=== PATIENT | male | born 1970 | race Caucasian/White ===

== ENCOUNTER 2021-07-13 14:15 | Inpatient (IN) ==
[2021-07-13] MEDS ORDERED: Isovue-370 500 ML BOTTLE IVP ONE (14:30)
[2021-07-13] MEDS ORDERED: 0.9 % Sodium Chloride 1,000 ML IVC ONE ×2 (14:30→17:34)
[2021-07-13 15:07] LABS: Albumin 3.4 g/dL (3.5-5.7); Albumin/Globulin Ratio 0.9 (1.1-2.2); Bilirubin,Direct 0.2 mg/dL (0.0-0.2); Bilirubin,Indirect 0.6 mg/dL (0.0-1.0); Bilirubin,Total 0.8 mg/dL (0.3-1.0); Calcium 10.1 mg/dL (8.6-10.3); Globulin 3.6 g/dL (2.4-3.5); Magnesium 1.4 mg/dL (1.6-2.6); Phosphorous 1.9 mg/dL (2.7-4.5); Potassium 4.4 mEq/L (3.5-5.1); Troponin I 0.03 ng/mL (< 0.04)
[2021-07-13 15:39] LABS: Bacteria,Urine Few per hpf (None-Few); Bilirubin,Urine Negative (Negative); Blood,Urine Negative (Negative); Clarity,Urine Clear (Clear); Color,Urine Light-Yellow (Yellow); Glucose,Urine (UA) >=1000 mg/dL (Normal); Ketones,Urine Trace mg/dL (Negative); Leukocyte Esterase,Urine Negative (Negative); Mucus,Urine Few per lpf (None-Few); Nitrite,Urine Negative (Negative); PH,Urine 5.5 pH Units (5.0-8.0); Protein,Urine Negative (Neg-Trace); RBC,Urine 0-3 per hpf (0-3); Specific Gravity,Urine > 1.030 (1.010-1.025); Squamous Epithelial Cell,Urine Few per hpf (None-Few); Urobilinogen,Urine Normal (Normal)
[2021-07-13 15:52] LABS: Basophils # 0.1 K/mcL (0.0-0.2); Basophils % 0.7 %; Eosinophils % 0.1 %; Hematocrit 49.2 % (37.5-50.1); Hemoglobin 16.3 g/dL (12.9-16.9); Immature Granulocytes % 0.5 % (0-4); Lymphocytes # 0.9 K/mcL (0.6-4.6); Lymphocytes % 8.2 %; Mean Corpuscular HGB Conc 33.1 g/dL (31.6-35.5); Mean Corpuscular Hemoglobin 28.7 pg (28.0-33.3); Mean Corpuscular Volume 86.8 fL (83.0-100.0); Mean Platelet Volume 10.7 fL (9.4-12.4); Monocytes # 0.6 K/mcL (0.0-1.3); Monocytes % 5.4 %; Platelet Count 145 K/mcL (140-400); Red Blood Count 5.67 M/mcL (4.19-5.50); Red Cell Distribution Width 14.6 % (11.5-14.5); Segmented Neutrophils % 85.1 %; White Blood Count 10.5 K/mcL (4.3-11.1)
[2021-07-13 16:09] LABS: Influenza A PCR Negative (Negative); Influenza B PCR Negative (Negative); Resp. Syncytial Virus PCR Negative (Negative); SARS-CoV-2 by PCR (In House) Negative (Negative)
[2021-07-13] MEDS ORDERED: Piperacillin/Tazobactam 4.5 GM in Water for inj. (sterile) 20 ML IVP ONE (16:37)
[2021-07-13 16:38] LABS: Activated Partial Thrombo Time 31.7 Seconds (26.0-36.0); INR 1.3; Prothrombin Time 14.3 Seconds (9.4-12.1)
[2021-07-13] MEDS ORDERED: Cefepime HCl 2,000 MG in Water for inj. (sterile) 20 ML IVP ONE (16:50)
[2021-07-13] MEDS ORDERED: MetroNIDAZOLE 500 MG/100 ML 500 MG/100 ML BAG IVPB ONE (17:00)
[2021-07-13] MEDS ORDERED: Ondansetron 4 MG/2 ML VIAL IVP PRN (17:09)
[2021-07-13] MEDS ORDERED: Naloxone 0.4 MG/ML INJ IVP PRN (17:09)
[2021-07-13] MEDS ORDERED: D5% in Water 1,000 ML IVC PRN (17:37)
[2021-07-13] MEDS ORDERED: Dextrose Gel 15 GM/37.5 ML TUBE PO PRN ×2 (17:37)
[2021-07-13] MEDS ORDERED: *HR* Dextrose 50 % in Water (Syg) 50 ML SYRINGE IVP PRN (17:37)
[2021-07-13 18:01] LABS: Estimated Average Glucose 303 mg/dl; Hemoglobin A1C 12.2 %
[2021-07-13] MEDS: 0.9 % Sodium Chloride 1,000 ML IVC SCH (19:30)
[2021-07-13 19:38] LABS: Adenovirus Not Detected (Not Detect); Bordetella Pertussis Not Detected (Not Detect); Chlamydophila pneumoniae Not Detected (Not Detect); Coronavirus 229E Not Detected (Not Detect); Coronavirus HKU1 Not Detected (Not Detect); Coronavirus NL63 Not Detected (Not Detect); Coronavirus OC43 Not Detected (Not Detect); Human Metapneumovirus Not Detected (Not Detect); Human Rhinovirus/Enterovirus Not Detected (Not Detect); Influenza A Subtype 2009 H1 Not Detected (Not Detect); Influenza B Not Detected (Not Detect); Mycoplasma pneumoniae Not Detected (Not Detect); Parainfluenza Virus 1 Not Detected (Not Detect); Parainfluenza Virus 2 Not Detected (Not Detect); Parainfluenza Virus 3 Not Detected (Not Detect); Parainfluenza Virus 4 Not Detected (Not Detect); Respiratory Syncytial Virus Not Detected (Not Detect); SARS-CoV-2 Not Detected (Not Detect)
[2021-07-13] MEDS: Insulin LISPRO 300 UNITS/3 ML VIAL SUBQ SCH (22:00)
[2021-07-13] MEDS: BuPROPion SR (12 HR) 150 MG TABLET PO SCH (22:10)
[2021-07-13] MEDS: *HR* Enoxaparin 150 MG/ML SYRINGE SQ SCH (22:10)
[2021-07-14] MEDS ORDERED: MetroNIDAZOLE 500 MG/100 ML 500 MG/100 ML BAG IVPB SCH
[2021-07-14] MEDS: 0.9 % Sodium Chloride 1,000 ML IVC SCH (02:46)
[2021-07-14] MEDS ORDERED: Acetaminophen IV 1,000 MG/100 ML BAG IVPB ONE (02:54)
[2021-07-14 03:48] LABS: Enterococcus by PCR Not Detected (Not Detect); Staphylococcus aureus by PCR Not Detected (Not Detect); Staphylococcus by PCR Not Detected (Not Detect)
[2021-07-14 03:49] LABS: Acinetobacter baumannii by PCR Not Detected (Not Detect); Candida albicans by PCR Not Detected (Not Detect); Candida glabrata by PCR Not Detected (Not Detect); Candida krusei by PCR Not Detected (Not Detect); Candida parapsilosis by PCR Not Detected (Not Detect); Candida tropicalis by PCR Not Detected (Not Detect); Enterobacter cloacae Cmplx PCR Not Detected (Not Detect); Enterobacteriaceae by PCR Not Detected (Not Detect); Escherichia coli by PCR Not Detected (Not Detect); Klebsiella oxytoca by PCR Not Detected (Not Detect); Klebsiella pneumoniae by PCR Not Detected (Not Detect); Proteus by PCR Not Detected (Not Detect); Pseudomonas aeruginosa by PCR Not Detected (Not Detect); Serratia marcescens by PCR Not Detected (Not Detect); Streptococcus agalactiae(B)PCR DETECTED (Not Detect); Streptococcus by PCR Not Detected (Not Detect); Streptococcus pneumoniae PCR Not Detected (Not Detect); Streptococcus pyogenes (A) PCR Not Detected (Not Detect)
[2021-07-14 03:50] LABS: Campylobacter by PCR Not detected (Not detect)
[2021-07-14 03:51] LABS: Adenovirus F 40/41 PCR Not detected (Not detect); Astrovirus PCR Not detected (Not detect); C.difficile Toxin A/B Gene PCR DETECTED (Not detect); Cryptosporidium by PCR Not detected (Not detect); Cyclospora cayetanensis PCR Not detected (Not detect); E. coli O157 by PCR Not detected (Not detect); Entamoeba histolytica PCR Not detected (Not detect); Enteroaggregative E.coli(EAEC) Not detected (Not detect); Enteropathogenic E.coli(EPEC) Not detected (Not detect); Enterotoxigenic E.coli (ETEC) Not detected (Not detect); Giardia lamblia PCR Not detected (Not detect); Norovirus GI/GII PCR Not detected (Not detect); Plesiomonas shigelloides PCR Not detected (Not detect); Rotavirus A PCR Not detected (Not detect); Salmonella PCR Not detected (Not detect); Sapovirus PCR Not detected (Not detect); Shig/EnteroinvasiveE coli EIEC Not detected (Not detect); Shigalike tox-prod E coli STEC Not detected (Not detect); Vibrio PCR Not detected (Not detect); Vibrio cholerae PCR Not detected (Not detect); Yersinia enterocolitica PCR Not detected (Not detect)
[2021-07-14 05:34] LABS: Basophils # 0.1 K/mcL (0.0-0.2); Basophils % 0.6 %; Eosinophils % 0.1 %; Hematocrit 41.2 % (37.5-50.1); Hemoglobin 13.9 g/dL (12.9-16.9); Immature Granulocytes % 0.9 % (0-4); Lymphocytes # 1.6 K/mcL (0.6-4.6); Lymphocytes % 13.5 %; Mean Corpuscular HGB Conc 33.7 g/dL (31.6-35.5); Mean Platelet Volume 10.5 fL (9.4-12.4); Monocytes # 1.6 K/mcL (0.0-1.3); Monocytes % 13.4 %; Neutrophils # 8.6 K/mcL (1.6-8.9); Platelet Count 126 K/mcL (140-400); Red Blood Count 4.79 M/mcL (4.19-5.50); Red Cell Distribution Width 14.8 % (11.5-14.5); Segmented Neutrophils % 71.5 %; White Blood Count 12.1 K/mcL (4.3-11.1)
[2021-07-14] MEDS: *HR* Enoxaparin 150 MG/ML SYRINGE SQ SCH ×2 (05:40→18:10)
[2021-07-14] MEDS: Cefepime HCl 2,000 MG in 0.9 % Sodium Chloride Mini Bag 100 ML IVPB SCH ×2 (05:41→16:12)
[2021-07-14] MEDS: Vancomycin Oral Soln 125 MG/2.5 ML UDC PO SCH ×5 (05:41→20:20)
[2021-07-14 05:47] LABS: BUN/Creatinine Ratio 21 (6-26); Blood Urea Nitrogen 29 mg/dL (6-20); Calcium 9.1 mg/dL (8.6-10.3); Carbon Dioxide 19 mEq/L (23-29); Chloride 99 mEq/L (98-107); Glucose 209 mg/dL (70-105); Magnesium 1.6 mg/dL (1.6-2.6); Osmolality,Calculated 280 (280-300); Potassium 4.1 mEq/L (3.5-5.1); Sodium 129 mEq/L (136-145); eGFR For African Americans > 60 (> 60); eGFR For Non-African Americans 55 (> 60)
[2021-07-14] MEDS ORDERED: Perflutren Lipid Microsphere 1.3 ML in 0.9 % Sodium Chloride 8.7 ML IVP PRN (07:27)
[2021-07-14] MEDS: Insulin LISPRO 300 UNITS/3 ML VIAL SUBQ SCH ×4 (08:46→20:19)
[2021-07-14] MEDS: BuPROPion SR (12 HR) 150 MG TABLET PO SCH ×2 (08:47→20:19)
[2021-07-14] MEDS: Vancomycin 1,500 MG/265 ML IV.SOLN IVPB SCH ×2 (08:47→20:20)
[2021-07-15 01:04] LABS: Basophils # 0.1 K/mcL (0.0-0.2); Basophils % 0.5 %; Eosinophils # 0.1 K/mcL (0.0-0.6); Eosinophils % 1.2 %; Hematocrit 40.5 % (37.5-50.1); Hemoglobin 13.4 g/dL (12.9-16.9); Immature Granulocytes % 0.7 % (0-4); Lymphocytes # 1.8 K/mcL (0.6-4.6); Lymphocytes % 14.9 %; Mean Corpuscular HGB Conc 33.1 g/dL (31.6-35.5); Mean Corpuscular Hemoglobin 28.7 pg (28.0-33.3); Mean Corpuscular Volume 86.7 fL (83.0-100.0); Mean Platelet Volume 10.7 fL (9.4-12.4); Monocytes # 1.7 K/mcL (0.0-1.3); Monocytes % 14.2 %; Platelet Count 124 K/mcL (140-400); Red Blood Count 4.67 M/mcL (4.19-5.50); Segmented Neutrophils % 68.5 %; White Blood Count 11.7 K/mcL (4.3-11.1)
[2021-07-15 01:22] LABS: BUN/Creatinine Ratio 22 (6-26); Blood Urea Nitrogen 23 mg/dL (6-20); Calcium 9.3 mg/dL (8.6-10.3); Carbon Dioxide 21 mEq/L (23-29); Chloride 101 mEq/L (98-107); Glucose 263 mg/dL (70-105); Magnesium 1.8 mg/dL (1.6-2.6); Osmolality,Calculated 279 (280-300); Phosphorous 1.4 mg/dL (2.7-4.5); Potassium 3.9 mEq/L (3.5-5.1); Sodium 128 mEq/L (136-145); eGFR For African Americans > 60 (> 60); eGFR For Non-African Americans > 60 (> 60)
[2021-07-15] MEDS: Cefepime HCl 2,000 MG in 0.9 % Sodium Chloride Mini Bag 100 ML IVPB SCH (04:39)
[2021-07-15] MEDS: *HR* Enoxaparin 150 MG/ML SYRINGE SQ SCH ×2 (04:39→17:01)
[2021-07-15] MEDS: Insulin LISPRO 300 UNITS/3 ML VIAL SUBQ SCH ×4 (08:09→21:07)
[2021-07-15] MEDS: BuPROPion SR (12 HR) 150 MG TABLET PO SCH ×2 (09:53→21:06)
[2021-07-15] MEDS: Vancomycin Oral Soln 125 MG/2.5 ML UDC PO SCH ×4 (09:53→21:06)
[2021-07-15] MEDS: Vancomycin 1,500 MG/265 ML IV.SOLN IVPB SCH (10:06)
[2021-07-15] MEDS: cefTRIAXone 2,000 MG in 0.9 % Sodium Chloride Mini Bag 100 ML IVPB SCH (14:16)
[2021-07-15] MEDS ORDERED: Gadolinium Contrast Agent (WT Based) IV PRN (14:56)
[2021-07-15] MEDS ORDERED: Vancomycin 1,500 MG/265 ML IV.SOLN IVPB SCH (17:00)
[2021-07-15] MEDS ORDERED: GADOBUTROL 30 MMOL/30 ML VIAL IVP ONE (17:51)
[2021-07-15] MEDS: Lactobacillus 1 EACH CAP.SPRINK PO SCH (21:06)
[2021-07-16 05:47] LABS: Basophils # 0.1 K/mcL (0.0-0.2); Basophils % 0.9 %; Eosinophils # 0.4 K/mcL (0.0-0.6); Eosinophils % 3.3 %; Hematocrit 42.6 % (37.5-50.1); Hemoglobin 13.9 g/dL (12.9-16.9); Immature Granulocytes % 1.3 % (0-4); Lymphocytes # 2.4 K/mcL (0.6-4.6); Lymphocytes % 19.7 %; Mean Corpuscular HGB Conc 32.6 g/dL (31.6-35.5); Mean Corpuscular Hemoglobin 28.1 pg (28.0-33.3); Mean Corpuscular Volume 86.1 fL (83.0-100.0); Mean Platelet Volume 11.2 fL (9.4-12.4); Monocytes # 1.1 K/mcL (0.0-1.3); Monocytes % 9.3 %; Neutrophils # 7.9 K/mcL (1.6-8.9); Platelet Count 163 K/mcL (140-400); Red Blood Count 4.95 M/mcL (4.19-5.50); Red Cell Distribution Width 14.9 % (11.5-14.5); Segmented Neutrophils % 65.5 %
[2021-07-16 06:02] LABS: BUN/Creatinine Ratio 19 (6-26); Blood Urea Nitrogen 19 mg/dL (6-20); Calcium 9.7 mg/dL (8.6-10.3); Carbon Dioxide 21 mEq/L (23-29); Chloride 100 mEq/L (98-107); Glucose 301 mg/dL (70-105); Magnesium 1.7 mg/dL (1.6-2.6); Osmolality,Calculated 278 (280-300); Phosphorous 1.8 mg/dL (2.7-4.5); Potassium 4.4 mEq/L (3.5-5.1); Sodium 127 mEq/L (136-145); eGFR For African Americans > 60 (> 60); eGFR For Non-African Americans > 60 (> 60)
[2021-07-16 06:29] LABS: Platelet Estimate Normal (Normal)
[2021-07-16] MEDS: Insulin LISPRO 300 UNITS/3 ML VIAL SUBQ SCH ×4 (07:29→21:32)
[2021-07-16] MEDS: Lactobacillus 1 EACH CAP.SPRINK PO SCH ×2 (07:33→20:40)
[2021-07-16] MEDS: BuPROPion SR (12 HR) 150 MG TABLET PO SCH ×2 (07:33→20:40)
[2021-07-16] MEDS: Vancomycin Oral Soln 125 MG/2.5 ML UDC PO SCH ×4 (07:33→21:31)
[2021-07-16] MEDS ORDERED: *HR* Rivaroxaban 10 MG TABLET PO SCH (09:00)
[2021-07-16] MEDS ORDERED: *HR* FentaNYL (PF) 100 MCG/2 ML VIAL IVP PRN (12:32)
[2021-07-16] MEDS ORDERED: Lidocaine 1% 20 ML MDV ONE (14:22)
[2021-07-16] MEDS ORDERED: *HR* Midazolam HCl 2 MG/2 ML VIAL ONE (14:26)
[2021-07-16] MEDS ORDERED: Lidocaine -MPF 2% 5 ML VIAL ONE (14:26)
[2021-07-16] MEDS ORDERED: *HR* FentaNYL (PF) 100 MCG/2 ML VIAL ONE (14:50)
[2021-07-16] MEDS: cefTRIAXone 2,000 MG in 0.9 % Sodium Chloride Mini Bag 100 ML IVPB SCH (16:08)
[2021-07-17 06:15] LABS: Eosinophils # 0.5 K/mcL (0.0-0.6); Hematocrit 41.4 % (37.5-50.1); Hemoglobin 13.7 g/dL (12.9-16.9); Mean Corpuscular HGB Conc 33.1 g/dL (31.6-35.5); Mean Corpuscular Hemoglobin 28.6 pg (28.0-33.3); Mean Corpuscular Volume 86.4 fL (83.0-100.0); Mean Platelet Volume 10.2 fL (9.4-12.4); Platelet Count 217 K/mcL (140-400); Red Blood Count 4.79 M/mcL (4.19-5.50); Red Cell Distribution Width 14.7 % (11.5-14.5); White Blood Count 13.5 K/mcL (4.3-11.1)
[2021-07-17 06:29] LABS: BUN/Creatinine Ratio 19 (6-26); Blood Urea Nitrogen 19 mg/dL (6-20); Calcium 9.8 mg/dL (8.6-10.3); Carbon Dioxide 22 mEq/L (23-29); Chloride 100 mEq/L (98-107); Glucose 256 mg/dL (70-105); Magnesium 1.6 mg/dL (1.6-2.6); Osmolality,Calculated 279 (280-300); Phosphorous 2.4 mg/dL (2.7-4.5); Potassium 4.6 mEq/L (3.5-5.1); Sodium 129 mEq/L (136-145); eGFR For African Americans > 60 (> 60); eGFR For Non-African Americans > 60 (> 60)
[2021-07-17 07:51] LABS: Monocytes # 0.5 K/mcL (0.0-1.3); Neutrophils # 8.9 K/mcL (1.6-8.9); Platelet Estimate Normal (Normal); Reactive Lymphocytes Present (Not Present)
[2021-07-17] MEDS: BuPROPion SR (12 HR) 150 MG TABLET PO SCH ×2 (08:14→20:13)
[2021-07-17] MEDS: Lactobacillus 1 EACH CAP.SPRINK PO SCH ×2 (08:14→20:13)
[2021-07-17] MEDS: Insulin LISPRO 300 UNITS/3 ML VIAL SUBQ SCH ×4 (08:15→20:13)
[2021-07-17] MEDS: Vancomycin Oral Soln 125 MG/2.5 ML UDC PO SCH ×4 (08:43→20:13)
[2021-07-17] MEDS: Insulin DETEMIR 100 UNIT/ML X5UNITS SUBQ SCH ×2 (12:41→20:13)
[2021-07-17] MEDS: cefTRIAXone 2,000 MG in 0.9 % Sodium Chloride Mini Bag 100 ML IVPB SCH (16:49)
[2021-07-17] MEDS: *HR* Rivaroxaban 10 MG TABLET PO SCH (16:50)
[2021-07-18 02:06] LABS: Hematocrit 39.9 % (37.5-50.1); Hemoglobin 13.5 g/dL (12.9-16.9); Mean Corpuscular HGB Conc 33.8 g/dL (31.6-35.5); Mean Corpuscular Hemoglobin 28.9 pg (28.0-33.3); Mean Corpuscular Volume 85.4 fL (83.0-100.0); Mean Platelet Volume 9.9 fL (9.4-12.4); Platelet Count 239 K/mcL (140-400); Red Blood Count 4.67 M/mcL (4.19-5.50); Red Cell Distribution Width 14.9 % (11.5-14.5); White Blood Count 16.1 K/mcL (4.3-11.1)
[2021-07-18 02:25] LABS: BUN/Creatinine Ratio 20 (6-26); Blood Urea Nitrogen 19 mg/dL (6-20); Calcium 10.2 mg/dL (8.6-10.3); Carbon Dioxide 22 mEq/L (23-29); Chloride 100 mEq/L (98-107); Glucose 263 mg/dL (70-105); Magnesium 1.6 mg/dL (1.6-2.6); Osmolality,Calculated 279 (280-300); Phosphorous 2.4 mg/dL (2.7-4.5); Potassium 4.3 mEq/L (3.5-5.1); Sodium 129 mEq/L (136-145); eGFR For African Americans > 60 (> 60); eGFR For Non-African Americans > 60 (> 60)
[2021-07-18 02:41] LABS: Anisocytosis 1+ (Not Present); Eosinophils # 0.3 K/mcL (0.0-0.6); Lymphocytes # 3.2 K/mcL (0.6-4.6); Monocytes # 1.3 K/mcL (0.0-1.3); Neutrophils # 10.6 K/mcL (1.6-8.9); Platelet Estimate Normal (Normal); Toxic Granulation Present (Not Present)
[2021-07-18] MEDS: Lactobacillus 1 EACH CAP.SPRINK PO SCH ×2 (09:32→20:37)
[2021-07-18] MEDS: Insulin DETEMIR 100 UNIT/ML X5UNITS SUBQ SCH ×2 (09:32→20:38)
[2021-07-18] MEDS: Vancomycin Oral Soln 125 MG/2.5 ML UDC PO SCH ×4 (09:32→20:37)
[2021-07-18] MEDS: BuPROPion SR (12 HR) 150 MG TABLET PO SCH ×2 (09:32→20:37)
[2021-07-18] MEDS: Aspirin Enteric Coated 81 MG Tablet PO SCH (09:32)
[2021-07-18] MEDS: Insulin LISPRO 300 UNITS/3 ML VIAL SUBQ SCH ×4 (09:33→20:38)
[2021-07-18] MEDS: cefTRIAXone 2,000 MG in 0.9 % Sodium Chloride Mini Bag 100 ML IVPB SCH (18:00)
[2021-07-18] MEDS: *HR* Rivaroxaban 10 MG TABLET PO SCH (18:05)
[2021-07-19 03:02] LABS: Basophils # 0.2 K/mcL (0.0-0.2); Basophils % 1.2 %; Eosinophils # 0.5 K/mcL (0.0-0.6); Eosinophils % 3.3 %; Hematocrit 40.5 % (37.5-50.1); Hemoglobin 13.5 g/dL (12.9-16.9); Lymphocytes # 2.8 K/mcL (0.6-4.6); Lymphocytes % 17.6 %; Mean Corpuscular HGB Conc 33.3 g/dL (31.6-35.5); Mean Corpuscular Hemoglobin 28.8 pg (28.0-33.3); Mean Corpuscular Volume 86.4 fL (83.0-100.0); Mean Platelet Volume 9.2 fL (9.4-12.4); Monocytes # 1.2 K/mcL (0.0-1.3); Monocytes % 7.4 %; Neutrophils # 10.2 K/mcL (1.6-8.9); Platelet Count 262 K/mcL (140-400); Red Blood Count 4.69 M/mcL (4.19-5.50); Segmented Neutrophils % 65.5 %; White Blood Count 15.6 K/mcL (4.3-11.1)
[2021-07-19 03:18] LABS: BUN/Creatinine Ratio 19 (6-26); Blood Urea Nitrogen 16 mg/dL (6-20); Carbon Dioxide 24 mEq/L (23-29); Chloride 100 mEq/L (98-107); Glucose 246 mg/dL (70-105); Magnesium 1.4 mg/dL (1.6-2.6); Osmolality,Calculated 277 (280-300); Potassium 4.2 mEq/L (3.5-5.1); Sodium 129 mEq/L (136-145); eGFR For African Americans > 60 (> 60); eGFR For Non-African Americans > 60 (> 60)
[2021-07-19 03:27] LABS: Platelet Estimate Normal (Normal); Reactive Lymphocytes Present (Not Present)
[2021-07-19] MEDS: Aspirin Enteric Coated 81 MG Tablet PO SCH (10:34)
[2021-07-19] MEDS: BuPROPion SR (12 HR) 150 MG TABLET PO SCH ×2 (10:34→21:09)
[2021-07-19] MEDS: Lactobacillus 1 EACH CAP.SPRINK PO SCH ×2 (10:34→21:09)
[2021-07-19] MEDS: Insulin DETEMIR 100 UNIT/ML X5UNITS SUBQ SCH ×2 (10:35→21:08)
[2021-07-19] MEDS: Insulin LISPRO 300 UNITS/3 ML VIAL SUBQ SCH ×4 (10:37→21:11)
[2021-07-19] MEDS: Vancomycin Oral Soln 125 MG/2.5 ML UDC PO SCH ×4 (10:49→21:09)
[2021-07-19] MEDS: *HR* Rivaroxaban 10 MG TABLET PO SCH (17:22)
[2021-07-19] MEDS: cefTRIAXone 2,000 MG in 0.9 % Sodium Chloride Mini Bag 100 ML IVPB SCH (17:22)
[2021-07-20 02:30] LABS: Basophils # 0.1 K/mcL (0.0-0.2); Basophils % 1.1 %; Eosinophils # 0.3 K/mcL (0.0-0.6); Eosinophils % 2.5 %; Hematocrit 41.4 % (37.5-50.1); Hemoglobin 13.7 g/dL (12.9-16.9); Lymphocytes # 2.3 K/mcL (0.6-4.6); Lymphocytes % 17.6 %; Mean Corpuscular HGB Conc 33.1 g/dL (31.6-35.5); Mean Corpuscular Hemoglobin 28.7 pg (28.0-33.3); Mean Corpuscular Volume 86.8 fL (83.0-100.0); Mean Platelet Volume 9.4 fL (9.4-12.4); Monocytes # 1.1 K/mcL (0.0-1.3); Monocytes % 8.8 %; Neutrophils # 8.4 K/mcL (1.6-8.9); Platelet Count 284 K/mcL (140-400); Red Blood Count 4.77 M/mcL (4.19-5.50); Red Cell Distribution Width 14.8 % (11.5-14.5)
[2021-07-20 02:45] LABS: BUN/Creatinine Ratio 19 (6-26); Blood Urea Nitrogen 20 mg/dL (6-20); Calcium 10.4 mg/dL (8.6-10.3); Carbon Dioxide 24 mEq/L (23-29); Chloride 97 mEq/L (98-107); Glucose 307 mg/dL (70-105); Magnesium 1.6 mg/dL (1.6-2.6); Osmolality,Calculated 280 (280-300); Phosphorous 3.1 mg/dL (2.7-4.5); Potassium 4.2 mEq/L (3.5-5.1); Sodium 128 mEq/L (136-145); eGFR For African Americans > 60 (> 60); eGFR For Non-African Americans > 60 (> 60)
[2021-07-20] MEDS: lisinopriL 20 MG TABLET PO SCH (09:35)
[2021-07-20] MEDS: Aspirin Enteric Coated 81 MG Tablet PO SCH (09:35)
[2021-07-20] MEDS: BuPROPion SR (12 HR) 150 MG TABLET PO SCH ×2 (09:35→21:14)
[2021-07-20] MEDS: Lactobacillus 1 EACH CAP.SPRINK PO SCH ×2 (09:35→21:13)
[2021-07-20] MEDS: Insulin DETEMIR 100 UNIT/ML X5UNITS SUBQ SCH ×2 (09:35→21:17)
[2021-07-20] MEDS: Vancomycin Oral Soln 125 MG/2.5 ML UDC PO SCH ×4 (09:35→21:14)
[2021-07-20] MEDS: Insulin LISPRO 300 UNITS/3 ML VIAL SUBQ SCH ×4 (09:37→21:15)
[2021-07-20] MEDS: *HR* Rivaroxaban 10 MG TABLET PO SCH (15:23)
[2021-07-20] MEDS: cefTRIAXone 2,000 MG in 0.9 % Sodium Chloride Mini Bag 100 ML IVPB SCH (15:24)
[2021-07-21 04:35] LABS: Hematocrit 43.4 % (37.5-50.1); Hemoglobin 14.2 g/dL (12.9-16.9); Mean Corpuscular HGB Conc 32.7 g/dL (31.6-35.5); Mean Corpuscular Hemoglobin 28.6 pg (28.0-33.3); Mean Corpuscular Volume 87.5 fL (83.0-100.0); Mean Platelet Volume 9.4 fL (9.4-12.4); Platelet Count 313 K/mcL (140-400); Red Blood Count 4.96 M/mcL (4.19-5.50); Red Cell Distribution Width 14.8 % (11.5-14.5); White Blood Count 12.5 K/mcL (4.3-11.1)
[2021-07-21 04:54] LABS: BUN/Creatinine Ratio 18 (6-26); Blood Urea Nitrogen 19 mg/dL (6-20); Calcium 10.7 mg/dL (8.6-10.3); Carbon Dioxide 25 mEq/L (23-29); Chloride 98 mEq/L (98-107); Glucose 358 mg/dL (70-105); Osmolality,Calculated 283 (280-300); Potassium 4.8 mEq/L (3.5-5.1); Sodium 128 mEq/L (136-145); eGFR For African Americans > 60 (> 60); eGFR For Non-African Americans > 60 (> 60)
[2021-07-21] MEDS: lisinopriL 20 MG TABLET PO SCH (07:50)
[2021-07-21] MEDS: Insulin DETEMIR 100 UNIT/ML X5UNITS SUBQ SCH ×2 (07:50→21:36)
[2021-07-21] MEDS: Aspirin Enteric Coated 81 MG Tablet PO SCH (07:50)
[2021-07-21] MEDS: Vancomycin Oral Soln 125 MG/2.5 ML UDC PO SCH ×4 (07:50→21:36)
[2021-07-21] MEDS: Insulin LISPRO 300 UNITS/3 ML VIAL SUBQ SCH ×4 (07:50→21:37)
[2021-07-21] MEDS: BuPROPion SR (12 HR) 150 MG TABLET PO SCH ×2 (07:50→21:35)
[2021-07-21] MEDS: Lactobacillus 1 EACH CAP.SPRINK PO SCH ×2 (07:50→21:35)
[2021-07-21] MEDS: cefTRIAXone 2,000 MG in 0.9 % Sodium Chloride Mini Bag 100 ML IVPB SCH (16:20)
[2021-07-21] MEDS: *HR* Rivaroxaban 10 MG TABLET PO SCH (16:21)
[2021-07-22 01:17] LABS: Hematocrit 41.5 % (37.5-50.1); Hemoglobin 13.6 g/dL (12.9-16.9); Mean Corpuscular HGB Conc 32.8 g/dL (31.6-35.5); Mean Corpuscular Hemoglobin 28.3 pg (28.0-33.3); Mean Corpuscular Volume 86.3 fL (83.0-100.0); Mean Platelet Volume 9.1 fL (9.4-12.4); Platelet Count 286 K/mcL (140-400); Red Blood Count 4.81 M/mcL (4.19-5.50); Red Cell Distribution Width 14.7 % (11.5-14.5)
[2021-07-22 01:34] LABS: BUN/Creatinine Ratio 21 (6-26); Blood Urea Nitrogen 22 mg/dL (6-20); Calcium 10.3 mg/dL (8.6-10.3); Carbon Dioxide 24 mEq/L (23-29); Chloride 99 mEq/L (98-107); Glucose 271 mg/dL (70-105); Osmolality,Calculated 281 (280-300); Sodium 129 mEq/L (136-145); eGFR For African Americans > 60 (> 60); eGFR For Non-African Americans > 60 (> 60)
[2021-07-22 04:06] VITALS: O2SAT 93
[2021-07-22 08:03] VITALS: TEMP 98.1
[2021-07-22] MEDS: Insulin LISPRO 300 UNITS/3 ML VIAL SUBQ SCH ×2 (08:09→11:43)
[2021-07-22] MEDS: BuPROPion SR (12 HR) 150 MG TABLET PO SCH (08:09)
[2021-07-22] MEDS: Lactobacillus 1 EACH CAP.SPRINK PO SCH (08:10)
[2021-07-22] MEDS: lisinopriL 20 MG TABLET PO SCH (08:10)
[2021-07-22] MEDS: Vancomycin Oral Soln 125 MG/2.5 ML UDC PO SCH ×2 (08:10→11:44)
[2021-07-22] MEDS: Aspirin Enteric Coated 81 MG Tablet PO SCH (08:10)
[2021-07-22] MEDS: Insulin DETEMIR 100 UNIT/ML X5UNITS SUBQ SCH (08:45)
[2021-07-22] MEDS ORDERED: Doxycycline 100 MG CAPSULE PO SCH (09:00)
[2021-07-22 11:06] VITALS: BP 109/66; PULSE 80
[2021-07-22] MEDS: cefTRIAXone 2,000 MG in 0.9 % Sodium Chloride Mini Bag 100 ML IVPB SCH (14:54)
== END 2021-07-22 16:19 | disposition home health service (06) | DRG 872 ==
LOC: EMEROOARM 14:15 → 2ANU 14:15 → SUATTDRO 17:20 → 2ANU 18:09 → SUATTDRO 07-14 18:29 → 2ANU 07-21 21:34
PROVIDERS: ADMIT Internal Medicine; ATTEND Internal Medicine

== ENCOUNTER 2021-08-06 15:51 | Inpatient (IN) ==
[2021-08-06] MEDS ORDERED: Vancomycin 2,000 MG/520 ML IV.SOLN IVPB ONE (19:31)
[2021-08-06 20:00] LABS: Basophils # 0.1 K/mcL (0.0-0.2); Basophils % 0.9 %; Eosinophils # 0.2 K/mcL (0.0-0.6); Hematocrit 45.4 % (37.5-50.1); Hemoglobin 14.7 g/dL (12.9-16.9); Lymphocytes # 1.7 K/mcL (0.6-4.6); Mean Corpuscular HGB Conc 32.4 g/dL (31.6-35.5); Mean Corpuscular Hemoglobin 28.2 pg (28.0-33.3); Mean Platelet Volume 9.8 fL (9.4-12.4); Monocytes % 9.6 %; Neutrophils # 7.1 K/mcL (1.6-8.9); Platelet Count 235 K/mcL (140-400); Red Blood Count 5.22 M/mcL (4.19-5.50); Red Cell Distribution Width 14.8 % (11.5-14.5); Segmented Neutrophils % 69.5 %; White Blood Count 10.3 K/mcL (4.3-11.1)
[2021-08-06] MEDS ORDERED: Cefepime HCl 2,000 MG in Water for inj. (sterile) 10 ML IVP ONE (20:00)
[2021-08-06 20:25] LABS: Alanine Aminotransferase 24 Units/L (7-52); Albumin 3.3 g/dL (3.5-5.7); Albumin/Globulin Ratio 0.7 (1.1-2.2); Alkaline Phosphatase 78 Units/L (34-104); Aspartate Amino Transferase 21 Units/L (13-39); BUN/Creatinine Ratio 17 (6-26); Bilirubin,Direct 0.1 mg/dL (0.0-0.2); Bilirubin,Indirect 0.5 mg/dL (0.0-1.0); Bilirubin,Total 0.6 mg/dL (0.3-1.0); Blood Urea Nitrogen 25 mg/dL (6-20); Calcium 10.4 mg/dL (8.6-10.3); Carbon Dioxide 24 mEq/L (23-29); Chloride 99 mEq/L (98-107); Globulin 4.6 g/dL (2.4-3.5); Glucose 105 mg/dL (70-105); Osmolality,Calculated 273 (280-300); Potassium 4.6 mEq/L (3.5-5.1); Sodium 129 mEq/L (136-145); Total Protein 7.9 g/dL (6.4-8.9); eGFR For African Americans > 60 (> 60); eGFR For Non-African Americans 50 (> 60)
[2021-08-06 20:28] LABS: C-Reactive Protein 20 mg/L (Less than 10)
[2021-08-06] MEDS ORDERED: 0.9 % Sodium Chloride 1,000 ML IVC ONE (21:40)
[2021-08-06 23:51] LABS: Bilirubin,Urine Negative (Negative); Blood,Urine Negative (Negative); Clarity,Urine Clear (Clear); Color,Urine Yellow (Yellow); Glucose,Urine (UA) >=1000 mg/dL (Normal); Ketones,Urine Negative (Negative); Leukocyte Esterase,Urine Negative (Negative); Mucus,Urine Few per lpf (None-Few); Nitrite,Urine Negative (Negative); PH,Urine 5.5 pH Units (5.0-8.0); Protein,Urine Trace mg/dL (Neg-Trace); RBC,Urine 0-3 per hpf (0-3); Specific Gravity,Urine 1.027 (1.010-1.025); Squamous Epithelial Cell,Urine Few per hpf (None-Few); Urobilinogen,Urine Normal (Normal); WBC,Urine 0-3 per hpf (0-3)
[2021-08-07] MEDS ORDERED: 0.9 % Sodium Chloride 1,000 ML IVC SCH (00:45)
[2021-08-07] MEDS ORDERED: D5% in Water 1,000 ML IVC PRN (01:08)
[2021-08-07] MEDS ORDERED: Dextrose Gel 15 GM/37.5 ML TUBE PO PRN ×2 (01:08)
[2021-08-07] MEDS ORDERED: *HR* Dextrose 50 % in Water (Syg) 50 ML SYRINGE IVP PRN (01:08)
[2021-08-07] MEDS: BuPROPion SR (12 HR) 150 MG TABLET PO SCH ×3 (01:39→22:25)
[2021-08-07] MEDS: Insulin LISPRO 300 UNITS/3 ML VIAL SUBQ SCH ×3 (07:10→17:22)
[2021-08-07] MEDS: Insulin NPH/REG 70/30 100 UNIT/ML (x5UNIT) SUBQ SCH ×2 (07:10→17:22)
[2021-08-07] MEDS: Furosemide 20 MG TABLET PO SCH (07:32)
[2021-08-07] MEDS ORDERED: (Empagliflozin [Jardiance] 25 MG PO SCH (09:00)
[2021-08-07] MEDS ORDERED: lisinopriL 20 MG TABLET PO SCH (09:00)
[2021-08-07] MEDS ORDERED: Ringers Solution, Lactated 1,000 ML IVC SCH (11:30)
[2021-08-07] MEDS ORDERED: Bupivacaine-MPF 0.25% 10 ML VIAL ONE (11:53)
[2021-08-07] MEDS ORDERED: Gentamicin 80 MG/2 ML VIAL ONE (12:13)
[2021-08-07] MEDS ORDERED: Vancomycin 1,000 MG VIAL ONE (12:13)
[2021-08-07] MEDS ORDERED: Lidocaine -MPF 2% 5 ML VIAL ONE (12:29)
[2021-08-07] MEDS ORDERED: *HR* Propofol 200 MG/20 ML VIAL IVP ONE (12:52)
[2021-08-07] MEDS: *HR* HYDROcodone/Acet 5/325 mg TABLET PO PRN ×2 (16:34→23:48)
[2021-08-07] MEDS: Cefepime HCl 2,000 MG in 0.9 % Sodium Chloride Mini Bag 100 ML IVPB SCH (16:34)
[2021-08-07 16:38] LABS: BUN/Creatinine Ratio 18 (6-26); Blood Urea Nitrogen 21 mg/dL (6-20); Carbon Dioxide 22 mEq/L (23-29); Chloride 104 mEq/L (98-107); Glucose 163 mg/dL (70-105); Osmolality,Calculated 277 (280-300); Potassium 4.3 mEq/L (3.5-5.1); Sodium 130 mEq/L (136-145); eGFR For African Americans > 60 (> 60); eGFR For Non-African Americans > 60 (> 60)
[2021-08-07] MEDS: Vancomycin 1,750 MG/517.5 ML IV.SOLN IVPB SCH (17:22)
[2021-08-08] MEDS: Insulin LISPRO 300 UNITS/3 ML VIAL SUBQ SCH ×4 (00:53→17:36)
[2021-08-08 05:52] LABS: Basophils # 0.1 K/mcL (0.0-0.2); Basophils % 0.7 %; Eosinophils # 0.3 K/mcL (0.0-0.6); Eosinophils % 3.3 %; Hematocrit 40.5 % (37.5-50.1); Hemoglobin 13.3 g/dL (12.9-16.9); Immature Granulocytes % 0.6 % (0-4); Lymphocytes # 1.6 K/mcL (0.6-4.6); Lymphocytes % 17.8 %; Mean Corpuscular HGB Conc 32.8 g/dL (31.6-35.5); Mean Corpuscular Hemoglobin 28.7 pg (28.0-33.3); Mean Corpuscular Volume 87.3 fL (83.0-100.0); Mean Platelet Volume 10.4 fL (9.4-12.4); Monocytes # 0.8 K/mcL (0.0-1.3); Monocytes % 9.2 %; Neutrophils # 6.1 K/mcL (1.6-8.9); Platelet Count 197 K/mcL (140-400); Red Blood Count 4.64 M/mcL (4.19-5.50); Red Cell Distribution Width 14.6 % (11.5-14.5); Segmented Neutrophils % 68.4 %; White Blood Count 8.9 K/mcL (4.3-11.1)
[2021-08-08] MEDS: Cefepime HCl 2,000 MG in 0.9 % Sodium Chloride Mini Bag 100 ML IVPB SCH ×2 (05:53→17:37)
[2021-08-08] MEDS: Vancomycin 1,750 MG/517.5 ML IV.SOLN IVPB SCH ×2 (05:55→18:36)
[2021-08-08 06:12] LABS: BUN/Creatinine Ratio 17 (6-26); Blood Urea Nitrogen 19 mg/dL (6-20); Calcium 9.5 mg/dL (8.6-10.3); Carbon Dioxide 21 mEq/L (23-29); Chloride 103 mEq/L (98-107); Glucose 139 mg/dL (70-105); Osmolality,Calculated 275 (280-300); Potassium 3.8 mEq/L (3.5-5.1); Sodium 130 mEq/L (136-145); eGFR For African Americans > 60 (> 60); eGFR For Non-African Americans > 60 (> 60)
[2021-08-08] MEDS: BuPROPion SR (12 HR) 150 MG TABLET PO SCH ×2 (09:15→21:20)
[2021-08-08] MEDS: Aspirin Enteric Coated 81 MG Tablet PO SCH (09:15)
[2021-08-08] MEDS: Insulin NPH/REG 70/30 100 UNIT/ML (x5UNIT) SUBQ SCH ×2 (09:15→18:36)
[2021-08-08] MEDS: Furosemide 20 MG TABLET PO SCH (09:16)
[2021-08-08] MEDS: *HR* HYDROcodone/Acet 5/325 mg TABLET PO PRN (09:17)
[2021-08-08] MEDS ORDERED: *HR* Rivaroxaban 10 MG TABLET PO SCH (18:00)
[2021-08-09] MEDS: Insulin LISPRO 300 UNITS/3 ML VIAL SUBQ SCH ×3 (00:09→14:00)
[2021-08-09] MEDS: Cefepime HCl 2,000 MG in 0.9 % Sodium Chloride Mini Bag 100 ML IVPB SCH (05:05)
[2021-08-09 06:16] LABS: BUN/Creatinine Ratio 16 (6-26); Blood Urea Nitrogen 16 mg/dL (6-20); Calcium 9.3 mg/dL (8.6-10.3); Carbon Dioxide 20 mEq/L (23-29); Chloride 106 mEq/L (98-107); Glucose 122 mg/dL (70-105); Osmolality,Calculated 274 (280-300); Potassium 3.9 mEq/L (3.5-5.1); Sodium 131 mEq/L (136-145); eGFR For African Americans > 60 (> 60); eGFR For Non-African Americans > 60 (> 60)
[2021-08-09] MEDS: Vancomycin 1,750 MG/517.5 ML IV.SOLN IVPB SCH (07:05)
[2021-08-09 07:42] VITALS: O2SAT 95
[2021-08-09] MEDS: Aspirin Enteric Coated 81 MG Tablet PO SCH (08:44)
[2021-08-09] MEDS: BuPROPion SR (12 HR) 150 MG TABLET PO SCH (08:44)
[2021-08-09] MEDS: Furosemide 20 MG TABLET PO SCH (08:44)
[2021-08-09] MEDS: Insulin NPH/REG 70/30 100 UNIT/ML (x5UNIT) SUBQ SCH (08:48)
[2021-08-09 11:05] VITALS: BP 142/66; PULSE 86; TEMP 98.1
[2021-08-11] MEDS ORDERED: Dulaglutide [Trulicity] 1.5 MG/0.5 ML SQ SCH (09:00)
== END 2021-08-09 16:29 | disposition home health service (06) | DRG 603 ==
LOC: 4WAOSI 15:51 → EMEROOARM 15:51 → 4WAOSI 23:43 → SUATTDRO 08-07 14:57
PROVIDERS: ADMIT Podiatrist Foot Surgery; ATTEND Family Medicine

== ENCOUNTER 2022-02-18 04:51 | Inpatient (IN) ==
[2022-02-18 05:14] LABS: Basophils # 0.1 K/mcL (0.0-0.2); Basophils % 0.9 %; Eosinophils # 0.3 K/mcL (0.0-0.6); Eosinophils % 2.5 %; Hematocrit 49.2 % (37.5-50.1); Hemoglobin 15.9 g/dL (12.9-16.9); Immature Granulocytes % 0.6 % (0-4); Lymphocytes # 2.3 K/mcL (0.6-4.6); Lymphocytes % 20.5 %; Mean Corpuscular HGB Conc 32.3 g/dL (31.6-35.5); Mean Corpuscular Hemoglobin 28.3 pg (28.0-33.3); Mean Corpuscular Volume 87.5 fL (83.0-100.0); Mean Platelet Volume 10.5 fL (9.4-12.4); Monocytes % 8.8 %; Neutrophils # 7.6 K/mcL (1.6-8.9); Platelet Count 204 K/mcL (140-400); Red Blood Count 5.62 M/mcL (4.19-5.50); Red Cell Distribution Width 16.1 % (11.5-14.5); Segmented Neutrophils % 66.7 %; White Blood Count 11.4 K/mcL (4.3-11.1)
[2022-02-18 05:37] LABS: Alanine Aminotransferase 13 Units/L (7-52); Albumin 3.5 g/dL (3.5-5.7); Alkaline Phosphatase 107 Units/L (34-104); Aspartate Amino Transferase 15 Units/L (13-39); BUN/Creatinine Ratio 23 (6-26); Bilirubin,Total 0.6 mg/dL (0.3-1.0); Blood Urea Nitrogen 27 mg/dL (6-20); Calcium 10.6 mg/dL (8.6-10.3); Carbon Dioxide 23 mEq/L (23-29); Chloride 107 mEq/L (98-107); Globulin 3.6 g/dL (2.4-3.5); Glucose 125 mg/dL (70-105); Lipase 69 Units/L (11-82); Osmolality,Calculated 287 (280-300); Potassium 4.4 mEq/L (3.5-5.1); Sodium 135 mEq/L (136-145); Total Protein 7.1 g/dL (6.4-8.9); eGFR For African Americans > 60 (> 60); eGFR For Non-African Americans > 60 (> 60)
[2022-02-18 05:40] LABS: Troponin I 0.04 ng/mL (< 0.04)
[2022-02-18] MEDS ORDERED: Ipratropium/Albuterol Neb 3 ML IH ONE (05:49)
[2022-02-18] MEDS ORDERED: Albuterol 2.5 MG/3 ML NEBULIZER IH ONE (05:49)
[2022-02-18] MEDS ORDERED: methylPREDNISolone 125 MG/2 ML VIAL IVP ONE (05:49)
[2022-02-18] MEDS ORDERED: Furosemide 40 MG/4 ML VIAL IVP ONE (05:50)
[2022-02-18] MEDS ORDERED: Azithromycin 250 MG TABLET PO ONE (05:50)
[2022-02-18] MEDS ORDERED: Aspirin 325 MG TABLET PO ONE (05:54)
[2022-02-18] MEDS ORDERED: Ondansetron 4 MG/2 ML VIAL IVP PRN (06:19)
[2022-02-18] MEDS ORDERED: Acetaminophen 325 MG TABLET PO PRN (06:19)
[2022-02-18] MEDS ORDERED: Naloxone 0.4 MG/ML INJ IVP PRN (06:19)
[2022-02-18] MEDS ORDERED: Perflutren Lipid Microsphere 1.3 ML in 0.9 % Sodium Chloride 8.7 ML IVP PRN (06:21)
[2022-02-18] MEDS ORDERED: Dextrose Gel 15 GM/37.5 ML TUBE PO PRN ×2 (07:56)
[2022-02-18] MEDS ORDERED: Ipratropium/Albuterol Neb 3 ML IH PRN (07:56)
[2022-02-18] MEDS ORDERED: *HR* Dextrose 50 % in Water (Syg) 50 ML SYRINGE IVP PRN (07:56)
[2022-02-18] MEDS ORDERED: D5% in Water 1,000 ML IVC PRN (07:56)
[2022-02-18 09:41] LABS: INR 1.5; Prothrombin Time 16.3 Seconds (9.4-12.1)
[2022-02-18 09:44] LABS: Activated Partial Thrombo Time 48.6 Seconds (26.0-36.0)
[2022-02-18 09:49] LABS: Chol/HDL Ratio 3.4 (0-4.9); Magnesium 1.8 mg/dL (1.6-2.6); Phosphorous 1.7 mg/dL (2.7-4.5)
[2022-02-18] MEDS: lisinopriL 20 MG TABLET PO SCH (09:52)
[2022-02-18] MEDS: Cholecalciferol (D-3) 1,000 UNIT (25MCG) TABLET PO SCH (09:53)
[2022-02-18] MEDS: BuPROPion SR (12 HR) 150 MG TABLET PO SCH ×2 (09:53→20:58)
[2022-02-18 10:04] LABS: Estimated Average Glucose 177 mg/dl; Hemoglobin A1C 7.8 %
[2022-02-18 10:28] LABS: Amphetamine Screen,Urine Negative ng/mL (Cutoff=1000); Barbiturate Screen,Urine Negative ng/mL (Cutoff=200); Benzodiazepines Screen,Urine Negative ng/mL (Cutoff=200); Cannabinoid Screen,Urine Negative ng/mL (Cutoff = 50); Cocaine Screen,Urine Negative ng/mL (Cutoff= 300); Opiate Screen,Urine Negative ng/mL (Cutoff=300); Phencyclidine Screen,Urine Negative ng/mL (Cutoff=25)
[2022-02-18] MEDS: Insulin LISPRO 300 UNITS/3 ML VIAL SUBQ SCH ×3 (10:59→20:58)
[2022-02-18] MEDS: *HR* Rivaroxaban 10 MG TABLET PO SCH (16:52)
[2022-02-18] MEDS ORDERED: *HR* Rivaroxaban 10 MG TABLET PO SCH (18:00)
[2022-02-18] MEDS: Insulin DETEMIR 100 UNIT/ML X5UNITS SUBQ SCH (20:58)
[2022-02-19 06:16] LABS: Basophils % 0.2 %; Eosinophils % 0.2 %; Hemoglobin 15.5 g/dL (12.9-16.9); Immature Granulocytes % 0.7 % (0-4); Lymphocytes # 1.9 K/mcL (0.6-4.6); Lymphocytes % 8.7 %; Mean Corpuscular HGB Conc 31.6 g/dL (31.6-35.5); Mean Corpuscular Hemoglobin 27.9 pg (28.0-33.3); Mean Corpuscular Volume 88.3 fL (83.0-100.0); Mean Platelet Volume 10.5 fL (9.4-12.4); Monocytes # 1.7 K/mcL (0.0-1.3); Monocytes % 7.8 %; Neutrophils # 17.8 K/mcL (1.6-8.9); Platelet Count 212 K/mcL (140-400); Red Blood Count 5.55 M/mcL (4.19-5.50); Red Cell Distribution Width 15.8 % (11.5-14.5); Segmented Neutrophils % 82.4 %; White Blood Count 21.6 K/mcL (4.3-11.1)
[2022-02-19 06:17] LABS: Alanine Aminotransferase 10 Units/L (7-52); Albumin 3.4 g/dL (3.5-5.7); Albumin/Globulin Ratio 1.1 (1.1-2.2); Alkaline Phosphatase 98 Units/L (34-104); Aspartate Amino Transferase 12 Units/L (13-39); BUN/Creatinine Ratio 34 (6-26); Bilirubin,Total 0.6 mg/dL (0.3-1.0); Blood Urea Nitrogen 43 mg/dL (6-20); Calcium 10.7 mg/dL (8.6-10.3); Carbon Dioxide 23 mEq/L (23-29); Chloride 104 mEq/L (98-107); Globulin 3.2 g/dL (2.4-3.5); Glucose 235 mg/dL (70-105); Osmolality,Calculated 294 (280-300); Potassium 4.6 mEq/L (3.5-5.1); Sodium 133 mEq/L (136-145); Total Protein 6.6 g/dL (6.4-8.9); eGFR For African Americans > 60 (> 60); eGFR For Non-African Americans > 60 (> 60)
[2022-02-19] MEDS: Insulin LISPRO 300 UNITS/3 ML VIAL SUBQ SCH ×4 (08:03→21:26)
[2022-02-19] MEDS: Cholecalciferol (D-3) 1,000 UNIT (25MCG) TABLET PO SCH (08:45)
[2022-02-19] MEDS: lisinopriL 20 MG TABLET PO SCH (08:45)
[2022-02-19] MEDS: BuPROPion SR (12 HR) 150 MG TABLET PO SCH ×2 (08:45→21:25)
[2022-02-19] MEDS: Aspirin Enteric Coated 81 MG Tablet PO SCH (08:45)
[2022-02-19] MEDS: Furosemide 40 MG/4 ML VIAL IVP SCH (08:46)
[2022-02-19 10:02] LABS: Bilirubin,Urine Negative (Negative); Blood,Urine Trace (Negative); Clarity,Urine Clear (Clear); Color,Urine Colorless (Yellow); Glucose,Urine (UA) >=1000 mg/dL (Normal); Ketones,Urine Negative (Negative); Leukocyte Esterase,Urine Negative (Negative); Nitrite,Urine Negative (Negative); Protein,Urine Negative (Neg-Trace); RBC,Urine 0-3 per hpf (0-3); Specific Gravity,Urine 1.023 (1.010-1.025); Squamous Epithelial Cell,Urine Few per hpf (None-Few); Urobilinogen,Urine Normal (Normal); WBC,Urine 0-3 per hpf (0-3)
[2022-02-19] MEDS ORDERED: Vancomycin 2,000 MG/520 ML IV.SOLN IVPB ONE (14:00)
[2022-02-19] MEDS: cefTRIAXone 2,000 MG in 0.9 % Sodium Chloride Mini Bag 100 ML IVPB SCH (14:33)
[2022-02-19] MEDS: *HR* Rivaroxaban 10 MG TABLET PO SCH (16:29)
[2022-02-19] MEDS: Insulin DETEMIR 100 UNIT/ML X5UNITS SUBQ SCH (21:25)
[2022-02-20] MEDS: Vancomycin 2,000 MG/520 ML IV.SOLN IVPB SCH ×2 (03:38→16:37)
[2022-02-20] MEDS ORDERED: Regadenoson 0.4 MG/5 ML SYRINGE IVP ONE (06:12)
[2022-02-20] MEDS: Furosemide 40 MG/4 ML VIAL IVP SCH ×2 (07:43→17:55)
[2022-02-20] MEDS: Cholecalciferol (D-3) 1,000 UNIT (25MCG) TABLET PO SCH (07:44)
[2022-02-20] MEDS: Aspirin Enteric Coated 81 MG Tablet PO SCH (07:44)
[2022-02-20] MEDS: BuPROPion SR (12 HR) 150 MG TABLET PO SCH ×2 (07:44→20:11)
[2022-02-20] MEDS: lisinopriL 20 MG TABLET PO SCH (07:44)
[2022-02-20] MEDS: Insulin LISPRO 300 UNITS/3 ML VIAL SUBQ SCH ×4 (07:45→20:11)
[2022-02-20] MEDS: cefTRIAXone 2,000 MG in 0.9 % Sodium Chloride Mini Bag 100 ML IVPB SCH (07:45)
[2022-02-20 08:31] LABS: Basophils # 0.1 K/mcL (0.0-0.2); Basophils % 0.9 %; Eosinophils # 0.2 K/mcL (0.0-0.6); Eosinophils % 1.8 %; Hematocrit 50.2 % (37.5-50.1); Hemoglobin 16.1 g/dL (12.9-16.9); Immature Granulocytes % 0.5 % (0-4); Lymphocytes # 2.3 K/mcL (0.6-4.6); Lymphocytes % 17.4 %; Mean Corpuscular HGB Conc 32.1 g/dL (31.6-35.5); Mean Corpuscular Volume 87.5 fL (83.0-100.0); Mean Platelet Volume 10.3 fL (9.4-12.4); Monocytes % 7.7 %; Neutrophils # 9.4 K/mcL (1.6-8.9); Platelet Count 202 K/mcL (140-400); Red Blood Count 5.74 M/mcL (4.19-5.50); Red Cell Distribution Width 16.7 % (11.5-14.5); Segmented Neutrophils % 71.7 %; White Blood Count 13.2 K/mcL (4.3-11.1)
[2022-02-20 08:52] LABS: Alanine Aminotransferase 16 Units/L (7-52); Albumin 3.6 g/dL (3.5-5.7); Albumin/Globulin Ratio 1.1 (1.1-2.2); Alkaline Phosphatase 97 Units/L (34-104); Aspartate Amino Transferase 13 Units/L (13-39); BUN/Creatinine Ratio 36 (6-26); Bilirubin,Total 0.6 mg/dL (0.3-1.0); Blood Urea Nitrogen 40 mg/dL (6-20); Calcium 10.4 mg/dL (8.6-10.3); Carbon Dioxide 23 mEq/L (23-29); Chloride 105 mEq/L (98-107); Globulin 3.4 g/dL (2.4-3.5); Glucose 192 mg/dL (70-105); Osmolality,Calculated 293 (280-300); Potassium 4.4 mEq/L (3.5-5.1); Sodium 134 mEq/L (136-145); eGFR For African Americans > 60 (> 60); eGFR For Non-African Americans > 60 (> 60)
[2022-02-20] MEDS ORDERED: Lidocaine Viscous Oral Soln 15 ML SOLUTION MM PRN (10:38)
[2022-02-20] MEDS ORDERED: 0.9 % Sodium Chloride 500 ML IVC ONE (10:39)
[2022-02-20] MEDS: *HR* Midazolam HCl 5 MG/5 ML VIAL IVP PRN ×5 (11:00→11:15)
[2022-02-20] MEDS: *HR* FentaNYL (PF) 100 MCG/2 ML VIAL IVP PRN ×5 (11:00→11:15)
[2022-02-20] MEDS ORDERED: Iopamidol - 370 500 ML MLS IVP ONE (15:35)
[2022-02-20] MEDS: *HR* Rivaroxaban 10 MG TABLET PO SCH (16:40)
[2022-02-20] MEDS ORDERED: 0.9 % Sodium Chloride 1,000 ML IVC SCH (17:15)
[2022-02-20] MEDS: Insulin DETEMIR 100 UNIT/ML X5UNITS SUBQ SCH (20:11)
[2022-02-21] MEDS: Insulin LISPRO 300 UNITS/3 ML VIAL SUBQ SCH ×4 (06:44→20:44)
[2022-02-21] MEDS: Aspirin Enteric Coated 81 MG Tablet PO SCH (06:45)
[2022-02-21] MEDS: Cholecalciferol (D-3) 1,000 UNIT (25MCG) TABLET PO SCH (06:45)
[2022-02-21] MEDS: BuPROPion SR (12 HR) 150 MG TABLET PO SCH ×2 (06:45→20:43)
[2022-02-21] MEDS: lisinopriL 20 MG TABLET PO SCH (06:45)
[2022-02-21 09:08] LABS: Basophils # 0.1 K/mcL (0.0-0.2); Eosinophils # 0.3 K/mcL (0.0-0.6); Eosinophils % 2.2 %; Hematocrit 49.3 % (37.5-50.1); Hemoglobin 16.2 g/dL (12.9-16.9); Immature Granulocytes % 0.6 % (0-4); Lymphocytes % 15.8 %; Mean Corpuscular HGB Conc 32.9 g/dL (31.6-35.5); Mean Corpuscular Hemoglobin 28.3 pg (28.0-33.3); Mean Corpuscular Volume 86.2 fL (83.0-100.0); Mean Platelet Volume 10.1 fL (9.4-12.4); Monocytes # 1.1 K/mcL (0.0-1.3); Monocytes % 8.4 %; Neutrophils # 9.1 K/mcL (1.6-8.9); Platelet Count 193 K/mcL (140-400); Red Blood Count 5.72 M/mcL (4.19-5.50); White Blood Count 12.7 K/mcL (4.3-11.1)
[2022-02-21 09:34] LABS: INR 1.2; Prothrombin Time 13.1 Seconds (9.4-12.1)
[2022-02-21 09:56] LABS: Alanine Aminotransferase 13 Units/L (7-52); Albumin 3.6 g/dL (3.5-5.7); Albumin/Globulin Ratio 1.1 (1.1-2.2); Alkaline Phosphatase 96 Units/L (34-104); Aspartate Amino Transferase 11 Units/L (13-39); BUN/Creatinine Ratio 33 (6-26); Bilirubin,Total 1.1 mg/dL (0.3-1.0); Blood Urea Nitrogen 35 mg/dL (6-20); Calcium 10.5 mg/dL (8.6-10.3); Carbon Dioxide 22 mEq/L (23-29); Chloride 103 mEq/L (98-107); Globulin 3.3 g/dL (2.4-3.5); Glucose 211 mg/dL (70-105); Osmolality,Calculated 288 (280-300); Potassium 4.3 mEq/L (3.5-5.1); Sodium 132 mEq/L (136-145); Total Protein 6.9 g/dL (6.4-8.9); eGFR For African Americans > 60 (> 60); eGFR For Non-African Americans > 60 (> 60)
[2022-02-21] MEDS: Furosemide 40 MG/4 ML VIAL IVP SCH ×2 (10:44→16:18)
[2022-02-21] MEDS ORDERED: Nitroglycerin 1,000 MCG/5 ML VIAL IV ONE (11:39)
[2022-02-21] MEDS ORDERED: Heparin 1,000 UNITS/500 mL 500 ML ONE (11:39)
[2022-02-21] MEDS ORDERED: *HR* Heparin 10,000 UNIT/10 ML VIAL ONE (11:39)
[2022-02-21] MEDS ORDERED: Iopamidol - 370 200 ML INFUS..BTL ONE (11:39)
[2022-02-21] MEDS ORDERED: 0.9 % Sodium Chloride 2,000 ML ONE (11:39)
[2022-02-21] MEDS ORDERED: *HR* FentaNYL (PF) 100 MCG/2 ML VIAL ONE (12:49)
[2022-02-21] MEDS ORDERED: *HR* Midazolam HCl 2 MG/2 ML VIAL ONE (12:49)
[2022-02-21] MEDS: Insulin DETEMIR 100 UNIT/ML X5UNITS SUBQ SCH (20:43)
[2022-02-22 01:58] LABS: Basophils # 0.1 K/mcL (0.0-0.2); Eosinophils # 0.3 K/mcL (0.0-0.6); Eosinophils % 3.1 %; Hematocrit 47.3 % (37.5-50.1); Hemoglobin 15.3 g/dL (12.9-16.9); Immature Granulocytes % 0.9 % (0-4); Lymphocytes # 2.4 K/mcL (0.6-4.6); Lymphocytes % 25.1 %; Mean Corpuscular HGB Conc 32.3 g/dL (31.6-35.5); Mean Corpuscular Hemoglobin 27.6 pg (28.0-33.3); Mean Corpuscular Volume 85.4 fL (83.0-100.0); Mean Platelet Volume 11.2 fL (9.4-12.4); Monocytes # 0.9 K/mcL (0.0-1.3); Monocytes % 9.7 %; Neutrophils # 5.8 K/mcL (1.6-8.9); Platelet Count 207 K/mcL (140-400); Red Blood Count 5.54 M/mcL (4.19-5.50); Red Cell Distribution Width 15.6 % (11.5-14.5); Segmented Neutrophils % 60.2 %; White Blood Count 9.7 K/mcL (4.3-11.1)
[2022-02-22 02:12] LABS: Alanine Aminotransferase 13 Units/L (7-52); Albumin 3.2 g/dL (3.5-5.7); Albumin/Globulin Ratio 0.9 (1.1-2.2); Alkaline Phosphatase 90 Units/L (34-104); Aspartate Amino Transferase 12 Units/L (13-39); BUN/Creatinine Ratio 31 (6-26); Bilirubin,Total 0.9 mg/dL (0.3-1.0); Blood Urea Nitrogen 37 mg/dL (6-20); Calcium 10.4 mg/dL (8.6-10.3); Carbon Dioxide 27 mEq/L (23-29); Chloride 99 mEq/L (98-107); Globulin 3.5 g/dL (2.4-3.5); Glucose 257 mg/dL (70-105); Osmolality,Calculated 293 (280-300); Sodium 133 mEq/L (136-145); Total Protein 6.7 g/dL (6.4-8.9); eGFR For African Americans > 60 (> 60); eGFR For Non-African Americans > 60 (> 60)
[2022-02-22] MEDS: Insulin LISPRO 300 UNITS/3 ML VIAL SUBQ SCH ×4 (07:31→20:02)
[2022-02-22] MEDS: Furosemide 40 MG/4 ML VIAL IVP SCH ×2 (07:31→16:45)
[2022-02-22] MEDS: Aspirin Enteric Coated 81 MG Tablet PO SCH (07:31)
[2022-02-22] MEDS: Cholecalciferol (D-3) 1,000 UNIT (25MCG) TABLET PO SCH (07:32)
[2022-02-22] MEDS: BuPROPion SR (12 HR) 150 MG TABLET PO SCH ×2 (07:32→20:03)
[2022-02-22] MEDS: lisinopriL 20 MG TABLET PO SCH (07:32)
[2022-02-22] MEDS: Insulin DETEMIR 100 UNIT/ML X5UNITS SUBQ SCH (20:02)
[2022-02-23] MEDS: Cholecalciferol (D-3) 1,000 UNIT (25MCG) TABLET PO SCH (07:57)
[2022-02-23] MEDS: Insulin LISPRO 300 UNITS/3 ML VIAL SUBQ SCH ×4 (07:57→22:10)
[2022-02-23] MEDS: Furosemide 40 MG/4 ML VIAL IVP SCH ×2 (07:57→17:07)
[2022-02-23] MEDS: lisinopriL 20 MG TABLET PO SCH (07:57)
[2022-02-23] MEDS: Aspirin Enteric Coated 81 MG Tablet PO SCH (07:57)
[2022-02-23] MEDS: BuPROPion SR (12 HR) 150 MG TABLET PO SCH ×2 (08:01→22:10)
[2022-02-23] MEDS: Insulin DETEMIR 100 UNIT/ML X5UNITS SUBQ SCH (22:10)
[2022-02-24] MEDS: BuPROPion SR (12 HR) 150 MG TABLET PO SCH ×2 (08:07→21:57)
[2022-02-24] MEDS: Aspirin Enteric Coated 81 MG Tablet PO SCH (08:07)
[2022-02-24] MEDS: Cholecalciferol (D-3) 1,000 UNIT (25MCG) TABLET PO SCH (08:07)
[2022-02-24] MEDS: Insulin LISPRO 300 UNITS/3 ML VIAL SUBQ SCH ×4 (08:07→21:57)
[2022-02-24 11:09] LABS: Basophils # 0.1 K/mcL (0.0-0.2); Basophils % 0.9 %; Eosinophils # 0.3 K/mcL (0.0-0.6); Eosinophils % 2.4 %; Hematocrit 49.1 % (37.5-50.1); Immature Granulocytes % 0.8 % (0-4); Lymphocytes # 1.8 K/mcL (0.6-4.6); Lymphocytes % 17.2 %; Mean Corpuscular HGB Conc 32.6 g/dL (31.6-35.5); Mean Corpuscular Hemoglobin 28.3 pg (28.0-33.3); Mean Corpuscular Volume 86.9 fL (83.0-100.0); Mean Platelet Volume 10.7 fL (9.4-12.4); Monocytes # 0.8 K/mcL (0.0-1.3); Monocytes % 7.4 %; Neutrophils # 7.5 K/mcL (1.6-8.9); Platelet Count 200 K/mcL (140-400); Red Blood Count 5.65 M/mcL (4.19-5.50); Red Cell Distribution Width 15.5 % (11.5-14.5); Segmented Neutrophils % 71.3 %; White Blood Count 10.5 K/mcL (4.3-11.1)
[2022-02-24 11:30] LABS: Alanine Aminotransferase 20 Units/L (7-52); Albumin 3.5 g/dL (3.5-5.7); Alkaline Phosphatase 97 Units/L (34-104); Aspartate Amino Transferase 15 Units/L (13-39); BUN/Creatinine Ratio 30 (6-26); Bilirubin,Total 0.7 mg/dL (0.3-1.0); Blood Urea Nitrogen 38 mg/dL (6-20); Calcium 10.6 mg/dL (8.6-10.3); Carbon Dioxide 29 mEq/L (23-29); Chloride 99 mEq/L (98-107); Globulin 3.4 g/dL (2.4-3.5); Glucose 366 mg/dL (70-105); Osmolality,Calculated 296 (280-300); Potassium 4.5 mEq/L (3.5-5.1); Sodium 131 mEq/L (136-145); Total Protein 6.9 g/dL (6.4-8.9); eGFR For African Americans > 60 (> 60); eGFR For Non-African Americans > 60 (> 60)
[2022-02-24] MEDS: lisinopriL 20 MG TABLET PO SCH (11:33)
[2022-02-24] MEDS: Furosemide 40 MG/4 ML VIAL IVP SCH ×2 (11:33→17:06)
[2022-02-24 20:29] LABS: Basophils # 0.1 K/mcL (0.0-0.2); Eosinophils # 0.3 K/mcL (0.0-0.6); Eosinophils % 2.6 %; Hematocrit 48.6 % (37.5-50.1); Hemoglobin 15.8 g/dL (12.9-16.9); Immature Granulocytes % 0.7 % (0-4); Lymphocytes # 2.3 K/mcL (0.6-4.6); Lymphocytes % 20.4 %; Mean Corpuscular HGB Conc 32.5 g/dL (31.6-35.5); Mean Corpuscular Hemoglobin 28.3 pg (28.0-33.3); Mean Corpuscular Volume 87.1 fL (83.0-100.0); Mean Platelet Volume 10.7 fL (9.4-12.4); Monocytes % 8.5 %; Neutrophils # 7.6 K/mcL (1.6-8.9); Platelet Count 212 K/mcL (140-400); Red Blood Count 5.58 M/mcL (4.19-5.50); Red Cell Distribution Width 15.3 % (11.5-14.5); Segmented Neutrophils % 66.8 %; White Blood Count 11.4 K/mcL (4.3-11.1)
[2022-02-24 20:42] LABS: INR 1.1; Prothrombin Time 12.8 Seconds (9.4-12.1)
[2022-02-24 20:49] LABS: Calcium 10.4 mg/dL (8.6-10.3); Chol/HDL Ratio 5.1 (0-4.9); Potassium 4.5 mEq/L (3.5-5.1)
[2022-02-24] MEDS: Insulin DETEMIR 100 UNIT/ML X5UNITS SUBQ SCH (21:57)
[2022-02-24] MEDS: Chlorhexidine Rinse 15 ML MOUTHWASH MM SCH (21:57)
[2022-02-25 01:39] LABS: Hematocrit 45.5 % (37.5-50.1); Hemoglobin 14.8 g/dL (12.9-16.9); Mean Corpuscular HGB Conc 32.5 g/dL (31.6-35.5); Mean Corpuscular Hemoglobin 27.9 pg (28.0-33.3); Mean Corpuscular Volume 85.8 fL (83.0-100.0); Mean Platelet Volume 10.6 fL (9.4-12.4); Platelet Count 191 K/mcL (140-400); Red Cell Distribution Width 15.3 % (11.5-14.5); White Blood Count 10.1 K/mcL (4.3-11.1)
[2022-02-25 01:55] LABS: Alanine Aminotransferase 20 Units/L (7-52); Albumin 3.2 g/dL (3.5-5.7); Alkaline Phosphatase 111 Units/L (34-104); Aspartate Amino Transferase 15 Units/L (13-39); BUN/Creatinine Ratio 35 (6-26); Bilirubin,Total 0.5 mg/dL (0.3-1.0); Blood Urea Nitrogen 48 mg/dL (6-20); Calcium 10.1 mg/dL (8.6-10.3); Carbon Dioxide 25 mEq/L (23-29); Chloride 98 mEq/L (98-107); Globulin 3.1 g/dL (2.4-3.5); Glucose 367 mg/dL (70-105); Osmolality,Calculated 296 (280-300); Sodium 129 mEq/L (136-145); Total Protein 6.3 g/dL (6.4-8.9); eGFR For African Americans > 60 (> 60); eGFR For Non-African Americans 54 (> 60)
[2022-02-25] MEDS ORDERED: Aspirin 81 MG TAB.CHEW PO ONE (06:00)
[2022-02-25] MEDS: lisinopriL 20 MG TABLET PO SCH (07:42)
[2022-02-25] MEDS: Insulin LISPRO 300 UNITS/3 ML VIAL SUBQ SCH ×2 (07:43→11:49)
[2022-02-25] MEDS: Furosemide 40 MG/4 ML VIAL IVP SCH ×2 (07:43→21:51)
[2022-02-25] MEDS: Chlorhexidine Rinse 15 ML MOUTHWASH MM SCH ×2 (07:43→20:58)
[2022-02-25] MEDS: Cholecalciferol (D-3) 1,000 UNIT (25MCG) TABLET PO SCH (07:44)
[2022-02-25] MEDS: BuPROPion SR (12 HR) 150 MG TABLET PO SCH ×2 (07:44→21:01)
[2022-02-25] MEDS ORDERED: CARDIOPLEGIC SOLUTION NO.1 1,000 ML ONE (07:58)
[2022-02-25] MEDS ORDERED: Vancomycin 1,000 MG VIAL ONE (10:04)
[2022-02-25] MEDS ORDERED: DOBUTamine 1,000 MG/250 ML BAG ONE (10:15)
[2022-02-25] MEDS ORDERED: NiCARdipine 2.5 MG/10 ML Syringe IVPB ONE (10:15)
[2022-02-25] MEDS ORDERED: *HR* Midazolam HCl 5 MG/5 ML VIAL IVP ONE ×2 (10:18→20:49)
[2022-02-25] MEDS ORDERED: *HR* FentaNYL (PF) 1,000 MCG/20 ML VIAL ONE (10:18)
[2022-02-25] MEDS ORDERED: *HR* Rocuronium Bromide 50 MG/5 ML VIAL ONE ×3 (10:20→20:49)
[2022-02-25] MEDS ORDERED: niCARdipine 20 MG/200 ML MLS IVC ONE (10:20)
[2022-02-25] MEDS ORDERED: Calcium Gluconate 1,000 MG/10 ML VIAL ONE (10:21)
[2022-02-25] MEDS ORDERED: *HR* Etomidate 20 MG/10 ML AMPUL IVP ONE (10:21)
[2022-02-25] MEDS ORDERED: Tranexamic Acid 1,000 MG/10 ML VIAL ONE (10:21)
[2022-02-25] MEDS ORDERED: Protamine Sulfate 250 MG/25 ML VIAL IVP ONE (10:23)
[2022-02-25] MEDS ORDERED: Vancomycin 2,000 MG/520 ML IV.SOLN IVPB ONE (11:00)
[2022-02-25] MEDS ORDERED: Clindamycin 900 MG/50 ML 900 MG/50 ML IV.SOLN IVPB ONE (11:00)
[2022-02-25] MEDS ORDERED: Albumin Human 25% 25 GM/100 ML IV.SOLN IVPB ONE (11:20)
[2022-02-25] MEDS ORDERED: Clindamycin 600 MG/50 ML IV.SOLN IVPB ONE (11:20)
[2022-02-25] MEDS ORDERED: Mannitol 25% vial 12.5 GM/50 ML VIAL IVPB ONE (11:20)
[2022-02-25] MEDS ORDERED: *HR* Heparin 10,000 UNIT/10 ML VIAL IR ONE (11:20)
[2022-02-25] MEDS ORDERED: *HR* Phenylephrine 10 MG/ML VIAL IVC ONE (11:20)
[2022-02-25] MEDS ORDERED: *HR* Magnesium Sulfate 2 GM/50 ML PIGGYBACK IVPB ONE (11:20)
[2022-02-25] MEDS ORDERED: Tranexamic Acid 1,000 MG/10 ML VIAL IR ONE (11:20)
[2022-02-25] MEDS ORDERED: Lidocaine 2% Syringe 100 MG/5 ML IVP ONE (11:20)
[2022-02-25 13:26] LABS: ABG Base Excess -1 mEq/L (-2 to 3); ABG Chloride 104 mEq/L (98-107); ABG Glucose 166 mg/dL (60-95); ABG HCO3 26 mEq/L (21-27); ABG Oxygen Saturation 100 % (95-98); ABG PCO2 53 mmHg (35-45); ABG PO2 313 mmHg (85-104); ABG TCO2 28 mEq/L (20-26)
[2022-02-25] MEDS ORDERED: Calcium Gluconate 1gm/50mL 1 GM/50 ML BAG IVPB PRN (14:55)
[2022-02-25] MEDS ORDERED: *HR* Dextrose 50 % in Water (Syg) 50 ML SYRINGE IVP PRN (14:55)
[2022-02-25] MEDS ORDERED: Insulin Regular, Human 100 UNIT/ML IV PRN (14:55)
[2022-02-25 15:09] LABS: ABG Base Excess -3 mEq/L (-2 to 3); ABG Chloride 106 mEq/L (98-107); ABG Glucose 170 mg/dL (60-95); ABG HCO3 23 mEq/L (21-27); ABG Ionized Calcium 1.31 mmol/L (1.15-1.35); ABG Oxygen Saturation 100 % (95-98); ABG PCO2 44 mmHg (35-45); ABG PH 7.33 pH Units (7.32-7.45); ABG PO2 364 mmHg (85-104); ABG TCO2 25 mEq/L (20-26)
[2022-02-25 15:17] LABS: ABG Base Excess -2 mEq/L (-2 to 3); ABG Chloride 102 mEq/L (98-107); ABG Glucose 179 mg/dL (60-95); ABG HCO3 24 mEq/L (21-27); ABG Ionized Calcium 1.23 mmol/L (1.15-1.35); ABG Oxygen Saturation 100 % (95-98); ABG PCO2 45 mmHg (35-45); ABG PH 7.33 pH Units (7.32-7.45); ABG PO2 552 mmHg (85-104); ABG TCO2 25 mEq/L (20-26)
[2022-02-25 15:45] LABS: ABG Base Excess -2 mEq/L (-2 to 3); ABG Chloride 104 mEq/L (98-107); ABG Glucose 203 mg/dL (60-95); ABG HCO3 24 mEq/L (21-27); ABG Ionized Calcium 1.33 mmol/L (1.15-1.35); ABG Oxygen Saturation 100 % (95-98); ABG PCO2 45 mmHg (35-45); ABG PH 7.34 pH Units (7.32-7.45); ABG PO2 594 mmHg (85-104); ABG TCO2 25 mEq/L (20-26)
[2022-02-25] MEDS ORDERED: *HR* Amiodarone 150 MG/3 ML VIAL IVPB ONE (16:03)
[2022-02-25] MEDS ORDERED: Amiodarone Premix 360 MG/200 ML BAG IVC ONE ×2 (16:03→18:47)
[2022-02-25 16:13] LABS: ABG Base Excess -1 mEq/L (-2 to 3); ABG Chloride 108 mEq/L (98-107); ABG Glucose 198 mg/dL (60-95); ABG HCO3 23 mEq/L (21-27); ABG Ionized Calcium 1.44 mmol/L (1.15-1.35); ABG Oxygen Saturation 100 % (95-98); ABG PCO2 34 mmHg (35-45); ABG PH 7.43 pH Units (7.32-7.45); ABG PO2 556 mmHg (85-104); ABG TCO2 24 mEq/L (20-26)
[2022-02-25 16:47] LABS: ABG Base Excess -4 mEq/L (-2 to 3); ABG Chloride 106 mEq/L (98-107); ABG Glucose 203 mg/dL (60-95); ABG HCO3 22 mEq/L (21-27); ABG Ionized Calcium 1.52 mmol/L (1.15-1.35); ABG Oxygen Saturation 96 % (95-98); ABG PCO2 39 mmHg (35-45); ABG PH 7.35 pH Units (7.32-7.45); ABG PO2 88 mmHg (85-104); ABG TCO2 23 mEq/L (20-26)
[2022-02-25] MEDS ORDERED: Artificial Tears SOLN 15 ML BOTTLE BOTH EYES PRN (17:46)
[2022-02-25 17:49] LABS: Basophils # 0.1 K/mcL (0.0-0.2); Basophils % 0.4 %; Eosinophils # 0.2 K/mcL (0.0-0.6); Eosinophils % 0.6 %; Hematocrit 43.7 % (37.5-50.1); Hemoglobin 14.3 g/dL (12.9-16.9); Immature Granulocytes % 1.9 % (0-4); Lymphocytes # 1.4 K/mcL (0.6-4.6); Lymphocytes % 5.8 %; Mean Corpuscular HGB Conc 32.7 g/dL (31.6-35.5); Mean Corpuscular Hemoglobin 28.2 pg (28.0-33.3); Mean Corpuscular Volume 86.2 fL (83.0-100.0); Mean Platelet Volume 10.2 fL (9.4-12.4); Monocytes # 1.5 K/mcL (0.0-1.3); Platelet Count 162 K/mcL (140-400); Red Blood Count 5.07 M/mcL (4.19-5.50); Red Cell Distribution Width 15.3 % (11.5-14.5); Segmented Neutrophils % 85.3 %; White Blood Count 24.6 K/mcL (4.3-11.1)
[2022-02-25 17:51] LABS: ABG Base Excess -3 mEq/L (-2 to 3); ABG HCO3 23 mEq/L (21-27); ABG Oxygen Saturation 94 % (95-98); ABG PCO2 42 mmHg (35-45); ABG PH 7.34 pH Units (7.32-7.45); ABG PO2 74 mmHg (85-104); ABG TCO2 24 mEq/L (20-26); Blood Gas Modality ASSIST CONTROL; Blood Gas VT 600 cc
[2022-02-25 18:06] LABS: BUN/Creatinine Ratio 36 (6-26); Blood Urea Nitrogen 40 mg/dL (6-20); Calcium 10.2 mg/dL (8.6-10.3); Carbon Dioxide 24 mEq/L (23-29); Chloride 106 mEq/L (98-107); Glucose 207 mg/dL (70-105); Magnesium 2.1 mg/dL (1.6-2.6); Osmolality,Calculated 294 (280-300); Potassium 4.7 mEq/L (3.5-5.1); Sodium 134 mEq/L (136-145); eGFR For African Americans > 60 (> 60); eGFR For Non-African Americans > 60 (> 60)
[2022-02-25 18:10] LABS: INR 1.2; Prothrombin Time 13.7 Seconds (9.4-12.1)
[2022-02-25] MEDS: *HR* FentaNYL (PF) 100 MCG/2 ML VIAL IVP PRN ×2 (18:10→21:53)
[2022-02-25] MEDS: Norepinephrine 4 MG/254 ML IV.SOLN IVC SCH (19:11)
[2022-02-25 20:09] LABS: ABG Base Excess -3 mEq/L (-2 to 3); ABG HCO3 23 mEq/L (21-27); ABG Oxygen Saturation 98 % (95-98); ABG PCO2 44 mmHg (35-45); ABG PH 7.33 pH Units (7.32-7.45); ABG PO2 104 mmHg (85-104); ABG TCO2 25 mEq/L (20-26); Blood Gas Modality AF; Blood Gas VT 500 cc
[2022-02-25] MEDS: DOBUTamine 1,000 MG/250 ML BAG IVC SCH (20:16)
[2022-02-25] MEDS: niCARdipine 20 MG/200 ML MLS IVC SCH ×2 (20:16→23:07)
[2022-02-25] MEDS ORDERED: Lidocaine -MPF 1% 5 ML AMPUL INFILT ONE (20:17)
[2022-02-25] MEDS ORDERED: *HR* FentaNYL (PF) 250 MCG/5 ML VIAL ONE (20:50)
[2022-02-25] MEDS: Pantoprazole 40 MG VIAL IVP SCH (20:58)
[2022-02-25] MEDS: Artificial Tears SOLN 15 ML BOTTLE BOTH EYES SCH (21:00)
[2022-02-25] MEDS: Aspirin Enteric Coated 81 MG Tablet PO ONE ×2 (21:00→21:12)
[2022-02-25] MEDS ORDERED: Insulin DETEMIR 100 UNIT/ML X5UNITS SUBQ SCH (21:00)
[2022-02-25] MEDS: Clindamycin 900 MG/50 ML 900 MG/50 ML IV.SOLN IVPB SCH (22:02)
[2022-02-25] MEDS: Amiodarone Premix 360 MG/200 ML BAG IVC SCH (22:03)
[2022-02-25] MEDS: Albumin Human 5% 12.5 GM/250 ML IV.SOLN IVPB PRN ×2 (22:23→23:09)
[2022-02-26] MEDS: FentaNYL (PF) 1,000 MCG/100 ML IV.SOLN IVC SCH ×5 (00:04→23:48)
[2022-02-26] MEDS: Artificial Tears SOLN 15 ML BOTTLE BOTH EYES SCH ×6 (00:04→21:02)
[2022-02-26 00:24] LABS: ABG Base Excess -2 mEq/L (-2 to 3); ABG HCO3 24 mEq/L (21-27); ABG Oxygen Saturation 100 % (95-98); ABG PCO2 43 mmHg (35-45); ABG PH 7.35 pH Units (7.32-7.45); ABG PO2 241 mmHg (85-104); ABG TCO2 25 mEq/L (20-26); Blood Gas Modality AF; Blood Gas VT 500 cc
[2022-02-26 04:09] LABS: Basophils % 0.2 %; Eosinophils # 0.1 K/mcL (0.0-0.6); Eosinophils % 0.3 %; Hematocrit 44.4 % (37.5-50.1); Hemoglobin 14.5 g/dL (12.9-16.9); Immature Granulocytes % 0.5 % (0-4); Lymphocytes # 1.2 K/mcL (0.6-4.6); Mean Corpuscular HGB Conc 32.7 g/dL (31.6-35.5); Mean Corpuscular Hemoglobin 28.7 pg (28.0-33.3); Mean Corpuscular Volume 87.7 fL (83.0-100.0); Mean Platelet Volume 10.7 fL (9.4-12.4); Monocytes # 1.6 K/mcL (0.0-1.3); Monocytes % 9.1 %; Neutrophils # 14.5 K/mcL (1.6-8.9); Platelet Count 173 K/mcL (140-400); Red Blood Count 5.06 M/mcL (4.19-5.50); Red Cell Distribution Width 15.8 % (11.5-14.5); Segmented Neutrophils % 82.9 %; White Blood Count 17.5 K/mcL (4.3-11.1)
[2022-02-26 04:11] LABS: VBG Ionized Calcium 1.37 mmol/L (1.15-1.35)
[2022-02-26 04:18] LABS: INR 1.2; Prothrombin Time 13.4 Seconds (9.4-12.1)
[2022-02-26 04:21] LABS: Activated Partial Thrombo Time 32.4 Seconds (26.0-36.0)
[2022-02-26 04:24] LABS: Phosphorous 3.4 mg/dL (2.7-4.5)
[2022-02-26 04:25] LABS: Alanine Aminotransferase 20 Units/L (7-52); Albumin 3.7 g/dL (3.5-5.7); Albumin/Globulin Ratio 1.5 (1.1-2.2); Alkaline Phosphatase 69 Units/L (34-104); Aspartate Amino Transferase 30 Units/L (13-39); BUN/Creatinine Ratio 37 (6-26); Bilirubin,Total 0.7 mg/dL (0.3-1.0); Blood Urea Nitrogen 40 mg/dL (6-20); Calcium 10.4 mg/dL (8.6-10.3); Carbon Dioxide 24 mEq/L (23-29); Chloride 107 mEq/L (98-107); Globulin 2.4 g/dL (2.4-3.5); Glucose 135 mg/dL (70-105); Osmolality,Calculated 290 (280-300); Potassium 4.7 mEq/L (3.5-5.1); Sodium 134 mEq/L (136-145); Total Protein 6.1 g/dL (6.4-8.9); eGFR For African Americans > 60 (> 60); eGFR For Non-African Americans > 60 (> 60)
[2022-02-26 04:31] LABS: ABG Base Excess -2 mEq/L (-2 to 3); ABG HCO3 24 mEq/L (21-27); ABG Oxygen Saturation 99 % (95-98); ABG PCO2 43 mmHg (35-45); ABG PH 7.35 pH Units (7.32-7.45); ABG PO2 137 mmHg (85-104); ABG TCO2 25 mEq/L (20-26); Blood Gas VT 500 cc
[2022-02-26] MEDS: Clindamycin 900 MG/50 ML 900 MG/50 ML IV.SOLN IVPB SCH ×3 (05:49→21:50)
[2022-02-26] MEDS: niCARdipine 20 MG/200 ML MLS IVC SCH ×6 (06:10→15:34)
[2022-02-26] MEDS: Norepinephrine 4 MG/254 ML IV.SOLN IVC SCH ×3 (07:29→18:11)
[2022-02-26] MEDS: Chlorhexidine Rinse 15 ML MOUTHWASH MM SCH ×2 (07:30→21:02)
[2022-02-26] MEDS: Pantoprazole 40 MG VIAL IVP SCH (07:31)
[2022-02-26] MEDS: Furosemide 40 MG/4 ML VIAL IVP SCH ×2 (07:34→16:21)
[2022-02-26] MEDS: BuPROPion SR (12 HR) 150 MG TABLET PO SCH ×2 (07:35→21:03)
[2022-02-26] MEDS: Aspirin Enteric Coated 81 MG Tablet PO SCH (07:35)
[2022-02-26] MEDS: Cholecalciferol (D-3) 1,000 UNIT (25MCG) TABLET PO SCH (07:35)
[2022-02-26] MEDS: Amiodarone Premix 360 MG/200 ML BAG IVC SCH (07:51)
[2022-02-26 08:48] LABS: BUN/Creatinine Ratio 35 (6-26); Blood Urea Nitrogen 40 mg/dL (6-20); Calcium 10.3 mg/dL (8.6-10.3); Carbon Dioxide 24 mEq/L (23-29); Chloride 106 mEq/L (98-107); Glucose 132 mg/dL (70-105); Osmolality,Calculated 290 (280-300); Phosphorous 3.9 mg/dL (2.7-4.5); Potassium 4.4 mEq/L (3.5-5.1); Sodium 134 mEq/L (136-145); eGFR For African Americans > 60 (> 60); eGFR For Non-African Americans > 60 (> 60)
[2022-02-26 08:58] LABS: ABG Base Excess -2 mEq/L (-2 to 3); ABG HCO3 24 mEq/L (21-27); ABG Oxygen Saturation 97 % (95-98); ABG PCO2 45 mmHg (35-45); ABG PH 7.33 pH Units (7.32-7.45); ABG PO2 103 mmHg (85-104); ABG TCO2 25 mEq/L (20-26); Blood Gas Modality ASSIST CONTROL; Blood Gas VT 500 cc
[2022-02-26] MEDS: Furosemide 240 MG in 0.9 % Sodium Chloride 96 ML IVC SCH (10:53)
[2022-02-26 11:18] LABS: ABG Base Excess -2 mEq/L (-2 to 3); ABG HCO3 24 mEq/L (21-27); ABG Oxygen Saturation 96 % (95-98); ABG PCO2 46 mmHg (35-45); ABG PH 7.33 pH Units (7.32-7.45); ABG PO2 87 mmHg (85-104); ABG TCO2 26 mEq/L (20-26); Blood Gas Modality ASSIST CONTROL; Blood Gas VT 500 cc
[2022-02-26] MEDS: DOBUTamine 1,000 MG/250 ML BAG IVC SCH ×3 (13:03→23:47)
[2022-02-26] MEDS ORDERED: Dextrose Gel 15 GM/37.5 ML TUBE PO PRN ×2 (14:22)
[2022-02-26] MEDS ORDERED: D5% in Water 1,000 ML IVC PRN (14:22)
[2022-02-26] MEDS ORDERED: *HR* Dextrose 50 % in Water (Syg) 50 ML SYRINGE IVP PRN (14:22)
[2022-02-26] MEDS: Insulin LISPRO 300 UNITS/3 ML VIAL SUBQ SCH ×2 (15:06→21:03)
[2022-02-26] MEDS ORDERED: Perflutren Lipid Microsphere 1.3 ML in 0.9 % Sodium Chloride 8.7 ML IVP PRN (15:12)
[2022-02-26] MEDS ORDERED: Amiodarone Premix 360 MG/200 ML BAG IVC ONE (18:26)
[2022-02-26] MEDS ORDERED: Amiodarone Premix 150 MG/100 ML BAG IVPB ONE (18:26)
[2022-02-26] MEDS: Dexmedetomidine HCl 400 MCG/100 ML MLS IVC SCH ×3 (19:45→23:52)
[2022-02-26 20:45] LABS: ABG Base Excess -3 mEq/L (-2 to 3); ABG HCO3 23 mEq/L (21-27); ABG Oxygen Saturation 95 % (95-98); ABG PCO2 43 mmHg (35-45); ABG PH 7.34 pH Units (7.32-7.45); ABG PO2 83 mmHg (85-104); ABG TCO2 25 mEq/L (20-26); Blood Gas Modality ASSIST CONTROL; Blood Gas VT 500 cc
[2022-02-26] MEDS: *HR* Heparin 5,000 UNIT/ML VIAL SQ SCH (23:45)
[2022-02-27] MEDS: Artificial Tears SOLN 15 ML BOTTLE BOTH EYES SCH ×7 (00:15→23:16)
[2022-02-27] MEDS: cefTRIAXone 2,000 MG in 0.9 % Sodium Chloride 20 ML IVPB SCH ×2 (00:15→07:49)
[2022-02-27] MEDS: niCARdipine 20 MG/200 ML MLS IVC SCH ×6 (00:15→20:59)
[2022-02-27] MEDS: Insulin LISPRO 300 UNITS/3 ML VIAL SUBQ SCH ×2 (00:15→04:00)
[2022-02-27] MEDS: Norepinephrine 4 MG/254 ML IV.SOLN IVC SCH ×3 (02:30→16:29)
[2022-02-27] MEDS: Dexmedetomidine HCl 400 MCG/100 ML MLS IVC SCH ×7 (02:31→21:09)
[2022-02-27 02:36] LABS: ABG Base Excess 0 mEq/L (-2 to 3); ABG HCO3 26 mEq/L (21-27); ABG Oxygen Saturation 98 % (95-98); ABG PCO2 50 mmHg (35-45); ABG PH 7.34 pH Units (7.32-7.45); ABG PO2 115 mmHg (85-104); ABG TCO2 28 mEq/L (20-26); Blood Gas Modality ASSIST CONTROL; Blood Gas VT 500 cc
[2022-02-27] MEDS: Amiodarone Premix 360 MG/200 ML BAG IVC SCH (03:20)
[2022-02-27] MEDS: FentaNYL (PF) 1,000 MCG/100 ML IV.SOLN IVC SCH ×4 (04:18→20:05)
[2022-02-27] MEDS: DOBUTamine 1,000 MG/250 ML BAG IVC SCH ×4 (04:41→22:44)
[2022-02-27] MEDS: Clindamycin 900 MG/50 ML 900 MG/50 ML IV.SOLN IVPB SCH ×2 (05:00→15:23)
[2022-02-27] MEDS: *HR* Heparin 5,000 UNIT/ML VIAL SQ SCH ×3 (05:00→22:12)
[2022-02-27 05:50] LABS: Basophils % 0.3 %; Immature Granulocytes % 0.5 % (0-4)
[2022-02-27 05:52] LABS: Basophils # 0.1 K/mcL (0.0-0.2); Eosinophils # 0.1 K/mcL (0.0-0.6); Eosinophils % 0.3 %; Hemoglobin 14.9 g/dL (12.9-16.9); Immature Platelets 5.6 % (1.1-6.1); Lymphocytes # 1.1 K/mcL (0.6-4.6); Lymphocytes % 6.2 %; Mean Corpuscular HGB Conc 32.4 g/dL (31.6-35.5); Mean Corpuscular Hemoglobin 28.3 pg (28.0-33.3); Mean Corpuscular Volume 87.5 fL (83.0-100.0); Monocytes % 11.5 %; Neutrophils # 14.4 K/mcL (1.6-8.9); Platelet Count 134 K/mcL (140-400); Red Blood Count 5.26 M/mcL (4.19-5.50); Red Cell Distribution Width 15.9 % (11.5-14.5); Segmented Neutrophils % 81.2 %; White Blood Count 17.7 K/mcL (4.3-11.1)
[2022-02-27 06:15] LABS: Platelet Estimate Normal (Normal)
[2022-02-27 06:16] LABS: BUN/Creatinine Ratio 20 (6-26); Blood Urea Nitrogen 29 mg/dL (6-20); Calcium 9.8 mg/dL (8.6-10.3); Carbon Dioxide 26 mEq/L (23-29); Chloride 98 mEq/L (98-107); Glucose 404 mg/dL (70-105); Magnesium 1.7 mg/dL (1.6-2.6); Osmolality,Calculated 299 (280-300); Sodium 133 mEq/L (136-145); eGFR For African Americans > 60 (> 60); eGFR For Non-African Americans 52 (> 60)
[2022-02-27] MEDS: Chlorhexidine Rinse 15 ML MOUTHWASH MM SCH ×2 (07:48→19:57)
[2022-02-27 08:10] LABS: ABG Base Excess 1 mEq/L (-2 to 3); ABG HCO3 27 mEq/L (21-27); ABG Oxygen Saturation 99 % (95-98); ABG PCO2 46 mmHg (35-45); ABG PH 7.38 pH Units (7.32-7.45); ABG PO2 122 mmHg (85-104); ABG TCO2 29 mEq/L (20-26); Blood Gas Modality AF; Blood Gas VT 500 cc
[2022-02-27] MEDS: Aspirin Enteric Coated 81 MG Tablet PO SCH (08:16)
[2022-02-27] MEDS: Cholecalciferol (D-3) 1,000 UNIT (25MCG) TABLET PO SCH (08:17)
[2022-02-27] MEDS: BuPROPion SR (12 HR) 150 MG TABLET PO SCH ×2 (08:17→19:57)
[2022-02-27] MEDS: Pantoprazole 40 MG VIAL IVP SCH (08:29)
[2022-02-27] MEDS: Albumin 25% 25gram/100mL 25 GM/100 ML IV.SOLN IVPB SCH ×5 (10:49→22:12)
[2022-02-27 11:23] LABS: ABG Base Excess 0 mEq/L (-2 to 3); ABG HCO3 26 mEq/L (21-27); ABG Oxygen Saturation 97 % (95-98); ABG PCO2 43 mmHg (35-45); ABG PH 7.38 pH Units (7.32-7.45); ABG PO2 92 mmHg (85-104); ABG TCO2 27 mEq/L (20-26); Blood Gas Modality AF; Blood Gas VT 500 cc
[2022-02-27] MEDS: Furosemide 240 MG in 0.9 % Sodium Chloride 96 ML IVC SCH (12:15)
[2022-02-27 13:00] LABS: VBG Ionized Calcium 1.29 mmol/L (1.15-1.35)
[2022-02-27 13:25] LABS: Magnesium 1.9 mg/dL (1.6-2.6); Phosphorous 1.4 mg/dL (2.7-4.5)
[2022-02-27 13:26] LABS: BUN/Creatinine Ratio 18 (6-26); Blood Urea Nitrogen 24 mg/dL (6-20); Calcium 9.9 mg/dL (8.6-10.3); Carbon Dioxide 29 mEq/L (23-29); Chloride 99 mEq/L (98-107); Glucose 307 mg/dL (70-105); Osmolality,Calculated 296 (280-300); Potassium 3.1 mEq/L (3.5-5.1); Sodium 135 mEq/L (136-145); eGFR For African Americans > 60 (> 60); eGFR For Non-African Americans 55 (> 60)
[2022-02-27] MEDS ORDERED: Potassium Chloride Elixir 20 MEQ/15 ML UDC GTUBE ONE (14:34)
[2022-02-27] MEDS ORDERED: 0.9 % Sodium Chloride 500 ML ONE (20:01)
[2022-02-27 22:54] LABS: BUN/Creatinine Ratio 16 (6-26); Blood Urea Nitrogen 19 mg/dL (6-20); Calcium 10.2 mg/dL (8.6-10.3); Carbon Dioxide 29 mEq/L (23-29); Chloride 101 mEq/L (98-107); Glucose 135 mg/dL (70-105); Magnesium 2.2 mg/dL (1.6-2.6); Osmolality,Calculated 290 (280-300); Phosphorous 2.1 mg/dL (2.7-4.5); Potassium 3.3 mEq/L (3.5-5.1); Sodium 138 mEq/L (136-145); eGFR For African Americans > 60 (> 60); eGFR For Non-African Americans > 60 (> 60)
[2022-02-27] MEDS: Potassium Chloride 40 MEQ/200 ML BAG IVPB PRN (23:19)
[2022-02-28] MEDS: Dexmedetomidine HCl 400 MCG/100 ML MLS IVC SCH ×9 (00:31→23:46)
[2022-02-28] MEDS: FentaNYL (PF) 1,000 MCG/100 ML IV.SOLN IVC SCH ×2 (01:37→06:23)
[2022-02-28] MEDS: Norepinephrine 4 MG/254 ML IV.SOLN IVC SCH ×2 (02:10→16:43)
[2022-02-28] MEDS: Albumin 25% 25gram/100mL 25 GM/100 ML IV.SOLN IVPB SCH ×7 (02:15→20:36)
[2022-02-28] MEDS: Artificial Tears SOLN 15 ML BOTTLE BOTH EYES SCH ×5 (03:04→20:50)
[2022-02-28] MEDS: niCARdipine 20 MG/200 ML MLS IVC SCH ×6 (03:04→21:49)
[2022-02-28 03:56] LABS: ABG Base Excess 5 mEq/L (-2 to 3); ABG HCO3 30 mEq/L (21-27); ABG Oxygen Saturation 97 % (95-98); ABG PCO2 46 mmHg (35-45); ABG PH 7.43 pH Units (7.32-7.45); ABG PO2 88 mmHg (85-104); ABG TCO2 32 mEq/L (20-26); Blood Gas VT 500 cc
[2022-02-28] MEDS: DOBUTamine 1,000 MG/250 ML BAG IVC SCH ×4 (04:31→21:33)
[2022-02-28 04:43] LABS: Hematocrit 38.5 % (37.5-50.1); Hemoglobin 12.4 g/dL (12.9-16.9); Immature Platelets 7.1 % (1.1-6.1); Mean Corpuscular HGB Conc 32.2 g/dL (31.6-35.5); Mean Corpuscular Hemoglobin 28.1 pg (28.0-33.3); Mean Corpuscular Volume 87.1 fL (83.0-100.0); Mean Platelet Volume 10.8 fL (9.4-12.4); Red Blood Count 4.42 M/mcL (4.19-5.50); Red Cell Distribution Width 15.7 % (11.5-14.5); White Blood Count 12.2 K/mcL (4.3-11.1)
[2022-02-28 04:55] LABS: BUN/Creatinine Ratio 15 (6-26); Blood Urea Nitrogen 17 mg/dL (6-20); Calcium 10.1 mg/dL (8.6-10.3); Carbon Dioxide 30 mEq/L (23-29); Chloride 100 mEq/L (98-107); Glucose 163 mg/dL (70-105); Magnesium 2.2 mg/dL (1.6-2.6); Osmolality,Calculated 289 (280-300); Potassium 3.9 mEq/L (3.5-5.1); Sodium 137 mEq/L (136-145); eGFR For African Americans > 60 (> 60); eGFR For Non-African Americans > 60 (> 60)
[2022-02-28] MEDS: *HR* Heparin 5,000 UNIT/ML VIAL SQ SCH ×3 (05:16→20:35)
[2022-02-28] MEDS: Chlorhexidine Rinse 15 ML MOUTHWASH MM SCH ×2 (09:33→19:49)
[2022-02-28] MEDS: Cholecalciferol (D-3) 1,000 UNIT (25MCG) TABLET PO SCH (09:34)
[2022-02-28] MEDS: BuPROPion SR (12 HR) 150 MG TABLET PO SCH ×2 (09:34→20:35)
[2022-02-28] MEDS: cefTRIAXone 2,000 MG in 0.9 % Sodium Chloride 20 ML IVPB SCH (09:34)
[2022-02-28] MEDS: Aspirin Enteric Coated 81 MG Tablet PO SCH (09:34)
[2022-02-28] MEDS: Amiodarone Premix 360 MG/200 ML BAG IVC SCH ×3 (09:35→21:54)
[2022-02-28] MEDS: Pantoprazole 40 MG VIAL IVP SCH (09:35)
[2022-02-28] MEDS: Furosemide 240 MG in 0.9 % Sodium Chloride 96 ML IVC SCH (10:21)
[2022-02-28] MEDS: Bumetanide 1 MG TABLET PO SCH (20:50)
[2022-02-28] MEDS: Insulin LISPRO 300 UNITS/3 ML VIAL SUBQ SCH (20:52)
[2022-03-01] MEDS: Albumin 25% 25gram/100mL 25 GM/100 ML IV.SOLN IVPB SCH ×5 (00:46→20:23)
[2022-03-01] MEDS: Norepinephrine 4 MG/254 ML IV.SOLN IVC SCH ×4 (00:48→23:34)
[2022-03-01] MEDS: niCARdipine 20 MG/200 ML MLS IVC SCH ×4 (00:57→20:53)
[2022-03-01] MEDS: Insulin LISPRO 300 UNITS/3 ML VIAL SUBQ SCH ×7 (01:00→23:51)
[2022-03-01] MEDS: Artificial Tears SOLN 15 ML BOTTLE BOTH EYES SCH ×7 (01:00→23:35)
[2022-03-01] MEDS: Dexmedetomidine HCl 400 MCG/100 ML MLS IVC SCH ×10 (01:27→23:33)
[2022-03-01 02:58] LABS: Red Cell Distribution Width 15.9 % (11.5-14.5)
[2022-03-01 03:00] LABS: Hematocrit 36.9 % (37.5-50.1); Hemoglobin 11.9 g/dL (12.9-16.9); Immature Platelets 7.1 % (1.1-6.1); Mean Corpuscular HGB Conc 32.2 g/dL (31.6-35.5); Mean Corpuscular Hemoglobin 28.5 pg (28.0-33.3); Mean Corpuscular Volume 88.5 fL (83.0-100.0); Mean Platelet Volume 11.1 fL (9.4-12.4); Red Blood Count 4.17 M/mcL (4.19-5.50); White Blood Count 12.8 K/mcL (4.3-11.1)
[2022-03-01 03:13] LABS: BUN/Creatinine Ratio 16 (6-26); Blood Urea Nitrogen 18 mg/dL (6-20); Calcium 10.9 mg/dL (8.6-10.3); Carbon Dioxide 28 mEq/L (23-29); Chloride 96 mEq/L (98-107); Glucose 307 mg/dL (70-105); Magnesium 2.2 mg/dL (1.6-2.6); Osmolality,Calculated 291 (280-300); Potassium 3.9 mEq/L (3.5-5.1); Sodium 134 mEq/L (136-145); eGFR For African Americans > 60 (> 60); eGFR For Non-African Americans > 60 (> 60)
[2022-03-01] MEDS: DOBUTamine 1,000 MG/250 ML BAG IVC SCH (03:50)
[2022-03-01] MEDS: *HR* Heparin 5,000 UNIT/ML VIAL SQ SCH ×3 (06:30→19:51)
[2022-03-01] MEDS: Bumetanide 1 MG TABLET PO SCH ×2 (06:33→09:41)
[2022-03-01] MEDS: BuPROPion SR (12 HR) 150 MG TABLET PO SCH ×3 (06:34→19:51)
[2022-03-01] MEDS ORDERED: Furosemide 20 MG/2 ML VIAL IVP SCH (09:00)
[2022-03-01] MEDS: Chlorhexidine Rinse 15 ML MOUTHWASH MM SCH ×2 (09:35→19:50)
[2022-03-01] MEDS: Pantoprazole 40 MG VIAL IVP SCH (09:35)
[2022-03-01] MEDS: cefTRIAXone 2,000 MG in 0.9 % Sodium Chloride 20 ML IVPB SCH (09:35)
[2022-03-01] MEDS: Amiodarone Premix 360 MG/200 ML BAG IVC SCH ×2 (09:37→19:52)
[2022-03-01] MEDS: Cholecalciferol (D-3) 1,000 UNIT (25MCG) TABLET PO SCH (09:41)
[2022-03-01] MEDS: Aspirin Enteric Coated 81 MG Tablet PO SCH (09:41)
[2022-03-01] MEDS ORDERED: Vancomycin 2,000 MG/520 ML IV.SOLN IVPB ONE (12:00)
[2022-03-01] MEDS: Levothyroxine Sodium 100 MCG VIAL IVP SCH (12:39)
[2022-03-01] MEDS ORDERED: D10% in Water 500 ML IVC PRN (12:43)
[2022-03-01 13:12] LABS: Phosphorous 2.1 mg/dL (2.7-4.5)
[2022-03-01] MEDS ORDERED: Clinimix E 5%-15% SOLUTION 2,000 ML with MVI, adult with vitamin K 10 ML IVC SCH (17:00)
[2022-03-01] MEDS: Bumetanide 1 MG/4 ML VIAL IVP SCH (18:07)
[2022-03-01] MEDS: Insulin DETEMIR 100 UNIT/ML X5UNITS SUBQ SCH ×2 (18:07→23:56)
[2022-03-01] MEDS: Vancomycin 1,500 MG/265 ML IV.SOLN IVPB SCH (23:56)
[2022-03-02] MEDS: Dexmedetomidine HCl 400 MCG/100 ML MLS IVC SCH ×4 (01:09→06:39)
[2022-03-02] MEDS: niCARdipine 20 MG/200 ML MLS IVC SCH ×5 (02:37→23:17)
[2022-03-02] MEDS: Amiodarone Premix 360 MG/200 ML BAG IVC SCH (02:37)
[2022-03-02] MEDS: Artificial Tears SOLN 15 ML BOTTLE BOTH EYES SCH ×5 (03:55→23:17)
[2022-03-02] MEDS: Insulin LISPRO 300 UNITS/3 ML VIAL SUBQ SCH ×5 (03:56→20:28)
[2022-03-02] MEDS: Bumetanide 1 MG/4 ML VIAL IVP SCH ×2 (04:00→17:24)
[2022-03-02] MEDS: *HR* Heparin 5,000 UNIT/ML VIAL SQ SCH ×3 (04:01→20:28)
[2022-03-02 04:23] LABS: Hematocrit 39.8 % (37.5-50.1); Hemoglobin 13.1 g/dL (12.9-16.9); Mean Corpuscular HGB Conc 32.9 g/dL (31.6-35.5); Mean Corpuscular Hemoglobin 28.9 pg (28.0-33.3); Mean Corpuscular Volume 87.9 fL (83.0-100.0); Mean Platelet Volume 10.4 fL (9.4-12.4); Platelet Count 162 K/mcL (140-400); Red Blood Count 4.53 M/mcL (4.19-5.50); Red Cell Distribution Width 15.8 % (11.5-14.5); White Blood Count 13.8 K/mcL (4.3-11.1)
[2022-03-02 04:46] LABS: BUN/Creatinine Ratio 27 (6-26); Blood Urea Nitrogen 25 mg/dL (6-20); Calcium 11.2 mg/dL (8.6-10.3); Carbon Dioxide 29 mEq/L (23-29); Chloride 97 mEq/L (98-107); Glucose 308 mg/dL (70-105); Osmolality,Calculated 294 (280-300); Potassium 3.6 mEq/L (3.5-5.1); Sodium 134 mEq/L (136-145); eGFR For African Americans > 60 (> 60); eGFR For Non-African Americans > 60 (> 60)
[2022-03-02] MEDS: Norepinephrine 4 MG/254 ML IV.SOLN IVC SCH (06:21)
[2022-03-02] MEDS: Potassium Chloride 40 MEQ/200 ML BAG IVPB PRN (07:53)
[2022-03-02] MEDS: Aspirin Enteric Coated 81 MG Tablet PO SCH (07:56)
[2022-03-02] MEDS: Levothyroxine Sodium 100 MCG VIAL IVP SCH (07:57)
[2022-03-02] MEDS: Chlorhexidine Rinse 15 ML MOUTHWASH MM SCH ×2 (07:57→19:44)
[2022-03-02] MEDS: Pantoprazole 40 MG VIAL IVP SCH (07:57)
[2022-03-02] MEDS: cefTRIAXone 2,000 MG in 0.9 % Sodium Chloride 20 ML IVPB SCH (07:58)
[2022-03-02] MEDS: Cholecalciferol (D-3) 1,000 UNIT (25MCG) TABLET PO SCH (07:59)
[2022-03-02] MEDS: BuPROPion SR (12 HR) 150 MG TABLET PO SCH ×2 (07:59→20:28)
[2022-03-02] MEDS: Insulin DETEMIR 100 UNIT/ML X5UNITS SUBQ SCH ×2 (08:06→20:29)
[2022-03-02 08:08] LABS: Alanine Aminotransferase 9 Units/L (7-52); Albumin 4.3 g/dL (3.5-5.7); Albumin/Globulin Ratio 1.7 (1.1-2.2); Alkaline Phosphatase 54 Units/L (34-104); Aspartate Amino Transferase 12 Units/L (13-39); Bilirubin,Total 0.9 mg/dL (0.3-1.0); Globulin 2.6 g/dL (2.4-3.5); Phosphorous 2.2 mg/dL (2.7-4.5); Total Protein 6.9 g/dL (6.4-8.9); Triglycerides 193 mg/dL (< 150)
[2022-03-02] MEDS ORDERED: Insulin DETEMIR 100 UNIT/ML X5UNITS SUBQ SCH (09:00)
[2022-03-02] MEDS ORDERED: Insulin DETEMIR 100 UNIT/ML X5UNITS SUBQ ONE (09:15)
[2022-03-02] MEDS ORDERED: Lidocaine TOPICAL Soln 50 ML BOTTLE TP ONE (10:15)
[2022-03-02] MEDS ORDERED: Acetylcysteine 10% 2 ML INHSOL IH ONE (10:16)
[2022-03-02] MEDS ORDERED: *HR* FentaNYL (PF) 100 MCG/2 ML VIAL IVP ONE (10:33)
[2022-03-02] MEDS ORDERED: *HR* Midazolam HCl 2 MG/2 ML VIAL IVP ONE (10:33)
[2022-03-02] MEDS ORDERED: *HR* Midazolam HCl 5 MG/5 ML VIAL IVP ONE (10:36)
[2022-03-02] MEDS ORDERED: Acetaminophen IV 500 MG/50 ML BAG IVPB ONE (15:32)
[2022-03-02] MEDS: Vancomycin 1,500 MG/265 ML IV.SOLN IVPB SCH (15:32)
[2022-03-02] MEDS ORDERED: Clinimix E 5%-15% SOLUTION 2,000 ML with MVI, adult with vitamin K 10 ML IVC SCH (17:00)
[2022-03-02] MEDS: *HR* OxyCODONE/APAP 5/325 TABLET PO PRN (21:39)
[2022-03-03] MEDS: *HR* OxyCODONE/APAP 5/325 TABLET PO PRN ×5 (01:33→23:52)
[2022-03-03] MEDS: Insulin LISPRO 300 UNITS/3 ML VIAL SUBQ SCH ×6 (01:35→21:05)
[2022-03-03] MEDS: Vancomycin 1,500 MG/265 ML IV.SOLN IVPB SCH ×2 (03:10→16:35)
[2022-03-03] MEDS: niCARdipine 20 MG/200 ML MLS IVC SCH ×2 (04:06→04:12)
[2022-03-03] MEDS: Artificial Tears SOLN 15 ML BOTTLE BOTH EYES SCH ×2 (04:07→07:58)
[2022-03-03 04:20] LABS: Hematocrit 43.1 % (37.5-50.1); Hemoglobin 13.6 g/dL (12.9-16.9); Mean Corpuscular HGB Conc 31.6 g/dL (31.6-35.5); Mean Corpuscular Volume 88.7 fL (83.0-100.0); Platelet Count 216 K/mcL (140-400); Red Blood Count 4.86 M/mcL (4.19-5.50); Red Cell Distribution Width 15.8 % (11.5-14.5); White Blood Count 15.5 K/mcL (4.3-11.1)
[2022-03-03] MEDS: Bumetanide 1 MG/4 ML VIAL IVP SCH ×2 (04:34→18:17)
[2022-03-03] MEDS: *HR* Heparin 5,000 UNIT/ML VIAL SQ SCH ×3 (04:34→21:07)
[2022-03-03 04:38] LABS: Alanine Aminotransferase 10 Units/L (7-52); Albumin 4.1 g/dL (3.5-5.7); Albumin/Globulin Ratio 1.5 (1.1-2.2); Alkaline Phosphatase 60 Units/L (34-104); Aspartate Amino Transferase 12 Units/L (13-39); BUN/Creatinine Ratio 35 (6-26); Bilirubin,Total 1.2 mg/dL (0.3-1.0); Blood Urea Nitrogen 33 mg/dL (6-20); Calcium 11.5 mg/dL (8.6-10.3); Carbon Dioxide 30 mEq/L (23-29); Chloride 100 mEq/L (98-107); Globulin 2.8 g/dL (2.4-3.5); Glucose 159 mg/dL (70-105); Magnesium 1.9 mg/dL (1.6-2.6); Osmolality,Calculated 295 (280-300); Phosphorous 2.5 mg/dL (2.7-4.5); Potassium 3.7 mEq/L (3.5-5.1); Sodium 137 mEq/L (136-145); Total Protein 6.9 g/dL (6.4-8.9); eGFR For African Americans > 60 (> 60); eGFR For Non-African Americans > 60 (> 60)
[2022-03-03] MEDS: Pantoprazole 40 MG VIAL IVP SCH ×2 (07:54→09:37)
[2022-03-03] MEDS: Cholecalciferol (D-3) 1,000 UNIT (25MCG) TABLET PO SCH ×2 (07:57→09:38)
[2022-03-03] MEDS: Aspirin Enteric Coated 81 MG Tablet PO SCH ×2 (07:57→09:36)
[2022-03-03] MEDS: Chlorhexidine Rinse 15 ML MOUTHWASH MM SCH ×3 (07:58→21:06)
[2022-03-03] MEDS: BuPROPion SR (12 HR) 150 MG TABLET PO SCH ×3 (07:59→21:06)
[2022-03-03] MEDS: Levothyroxine Sodium 100 MCG VIAL IVP SCH (08:00)
[2022-03-03] MEDS: cefTRIAXone 2,000 MG in 0.9 % Sodium Chloride 20 ML IVPB SCH ×2 (08:01→09:37)
[2022-03-03] MEDS: Insulin DETEMIR 100 UNIT/ML X5UNITS SUBQ SCH ×3 (08:12→21:08)
[2022-03-03] MEDS ORDERED: Ipratropium/Albuterol Neb 3 ML IH PRN (08:23)
[2022-03-03] MEDS ORDERED: Clinimix E 5%-15% SOLUTION 2,000 ML with MVI, adult with vitamin K 10 ML IVC SCH (08:23)
[2022-03-03] MEDS ORDERED: Ondansetron 4 MG/2 ML VIAL IVP PRN (08:23)
[2022-03-03] MEDS ORDERED: Acetaminophen 325 MG TABLET PO PRN (08:23)
[2022-03-03] MEDS ORDERED: D5% in Water 1,000 ML IVC PRN (08:23)
[2022-03-03] MEDS ORDERED: *HR* Dextrose 50 % in Water (Syg) 50 ML SYRINGE IVP PRN (08:23)
[2022-03-03] MEDS ORDERED: Naloxone 0.4 MG/ML INJ IVP PRN (08:23)
[2022-03-03] MEDS ORDERED: Dextrose Gel 15 GM/37.5 ML TUBE PO PRN ×2 (08:23)
[2022-03-03] MEDS ORDERED: D10% in Water 500 ML IVC PRN (08:23)
[2022-03-03] MEDS ORDERED: Levothyroxine Sodium 100 MCG VIAL IVP SCH (09:00)
[2022-03-03] MEDS ORDERED: Lidocaine -MPF 1% 5 ML AMPUL INFILT ONE (10:08)
[2022-03-03] MEDS ORDERED: Vancomycin 1,500 MG/265 ML IV.SOLN IVPB SCH (12:00)
[2022-03-03] MEDS ORDERED: *HR* Metoprolol 5 MG/5 ML VIAL IVP PRN (14:25)
[2022-03-03] MEDS ORDERED: Amiodarone Premix 150 MG/100 ML BAG IVPB ONE (15:55)
[2022-03-03] MEDS ORDERED: Amiodarone Premix 360 MG/200 ML BAG IVC ONE (16:00)
[2022-03-03] MEDS: Amiodarone Premix 360 MG/200 ML BAG IVC SCH (22:57)
[2022-03-04] MEDS: Melatonin 3 MG TABLET PO PRN (00:37)
[2022-03-04] MEDS: Insulin LISPRO 300 UNITS/3 ML VIAL SUBQ SCH ×6 (00:47→21:01)
[2022-03-04] MEDS: Vancomycin 1,500 MG/265 ML IV.SOLN IVPB SCH ×2 (04:30→15:03)
[2022-03-04 05:06] LABS: Hemoglobin 13.1 g/dL (12.9-16.9); Mean Corpuscular HGB Conc 31.2 g/dL (31.6-35.5); Mean Corpuscular Hemoglobin 27.8 pg (28.0-33.3); Mean Corpuscular Volume 89.2 fL (83.0-100.0); Mean Platelet Volume 10.4 fL (9.4-12.4); Platelet Count 204 K/mcL (140-400); Red Blood Count 4.71 M/mcL (4.19-5.50); Red Cell Distribution Width 15.5 % (11.5-14.5); White Blood Count 13.8 K/mcL (4.3-11.1)
[2022-03-04 05:22] LABS: BUN/Creatinine Ratio 35 (6-26); Blood Urea Nitrogen 37 mg/dL (6-20); Calcium 11.1 mg/dL (8.6-10.3); Carbon Dioxide 32 mEq/L (23-29); Chloride 100 mEq/L (98-107); Glucose 210 mg/dL (70-105); Magnesium 1.7 mg/dL (1.6-2.6); Osmolality,Calculated 297 (280-300); Potassium 3.8 mEq/L (3.5-5.1); Sodium 136 mEq/L (136-145); eGFR For African Americans > 60 (> 60); eGFR For Non-African Americans > 60 (> 60)
[2022-03-04] MEDS: Bumetanide 1 MG/4 ML VIAL IVP SCH ×2 (05:54→18:03)
[2022-03-04] MEDS: *HR* Heparin 5,000 UNIT/ML VIAL SQ SCH ×3 (05:54→21:01)
[2022-03-04] MEDS: Pantoprazole 40 MG VIAL IVP SCH (08:51)
[2022-03-04] MEDS: Aspirin Enteric Coated 81 MG Tablet PO SCH (08:51)
[2022-03-04] MEDS: Cholecalciferol (D-3) 1,000 UNIT (25MCG) TABLET PO SCH (08:51)
[2022-03-04] MEDS: cefTRIAXone 2,000 MG in 0.9 % Sodium Chloride 20 ML IVPB SCH (08:51)
[2022-03-04] MEDS: Insulin DETEMIR 100 UNIT/ML X5UNITS SUBQ SCH ×2 (08:52→22:06)
[2022-03-04] MEDS: Chlorhexidine Rinse 15 ML MOUTHWASH MM SCH ×2 (08:52→22:06)
[2022-03-04] MEDS: BuPROPion SR (12 HR) 150 MG TABLET PO SCH ×2 (08:52→21:02)
[2022-03-04] MEDS: Amiodarone Premix 360 MG/200 ML BAG IVC SCH (10:20)
[2022-03-04] MEDS: *HR* Amiodarone 200 MG TABLET PO SCH ×2 (15:03→21:02)
[2022-03-04] MEDS: *HR* OxyCODONE/APAP 5/325 TABLET PO PRN (21:01)
[2022-03-05] MEDS: Insulin LISPRO 300 UNITS/3 ML VIAL SUBQ SCH ×7 (00:45→23:56)
[2022-03-05 02:57] LABS: Hematocrit 42.3 % (37.5-50.1); Hemoglobin 13.4 g/dL (12.9-16.9); Mean Corpuscular HGB Conc 31.7 g/dL (31.6-35.5); Mean Corpuscular Volume 88.3 fL (83.0-100.0); Mean Platelet Volume 9.7 fL (9.4-12.4); Platelet Count 198 K/mcL (140-400); Red Blood Count 4.79 M/mcL (4.19-5.50); Red Cell Distribution Width 15.4 % (11.5-14.5); White Blood Count 13.6 K/mcL (4.3-11.1)
[2022-03-05 03:18] LABS: BUN/Creatinine Ratio 38 (6-26); Blood Urea Nitrogen 37 mg/dL (6-20); Carbon Dioxide 28 mEq/L (23-29); Chloride 99 mEq/L (98-107); Glucose 267 mg/dL (70-105); Magnesium 1.7 mg/dL (1.6-2.6); Osmolality,Calculated 292 (280-300); Potassium 3.9 mEq/L (3.5-5.1); Sodium 132 mEq/L (136-145); eGFR For African Americans > 60 (> 60); eGFR For Non-African Americans > 60 (> 60)
[2022-03-05] MEDS: Bumetanide 1 MG/4 ML VIAL IVP SCH ×2 (05:13→16:22)
[2022-03-05] MEDS: *HR* Heparin 5,000 UNIT/ML VIAL SQ SCH (05:14)
[2022-03-05] MEDS: Vancomycin 1,500 MG/265 ML IV.SOLN IVPB SCH ×2 (05:14→16:22)
[2022-03-05] MEDS: Aspirin Enteric Coated 81 MG Tablet PO SCH (07:53)
[2022-03-05] MEDS: *HR* Amiodarone 200 MG TABLET PO SCH ×2 (07:53→21:03)
[2022-03-05] MEDS: Chlorhexidine Rinse 15 ML MOUTHWASH MM SCH ×2 (07:54→21:02)
[2022-03-05] MEDS: Insulin DETEMIR 100 UNIT/ML X5UNITS SUBQ SCH ×2 (07:54→21:07)
[2022-03-05] MEDS: BuPROPion SR (12 HR) 150 MG TABLET PO SCH ×2 (07:54→21:02)
[2022-03-05] MEDS: Pantoprazole 40 MG VIAL IVP SCH (07:54)
[2022-03-05] MEDS: Cholecalciferol (D-3) 1,000 UNIT (25MCG) TABLET PO SCH (07:54)
[2022-03-05] MEDS: cefTRIAXone 2,000 MG in 0.9 % Sodium Chloride 20 ML IVPB SCH (07:55)
[2022-03-05 08:39] LABS: Phosphorous 2.1 mg/dL (2.7-4.5)
[2022-03-05] MEDS ORDERED: Potassium Phosphate 44 MEQ in 0.9 % Sodium Chloride 250 ML IVPB ONE (10:32)
[2022-03-05] MEDS ORDERED: *HR* Midazolam HCl 5 MG/5 ML VIAL IVP ONE ×2 (13:17→13:41)
[2022-03-05] MEDS ORDERED: *HR* FentaNYL (PF) 100 MCG/2 ML VIAL ONE (13:17)
[2022-03-05] MEDS ORDERED: Lidocaine Viscous Oral Soln 15 ML SOLUTION ONE (13:18)
[2022-03-05] MEDS ORDERED: *HR* FentaNYL (PF) 100 MCG/2 ML VIAL IVP ONE (13:39)
[2022-03-05] MEDS ORDERED: Tetracaine/Benzocaine/Butamben 1 SPRAY AEROSOL MM ONE (14:27)
[2022-03-05] MEDS ORDERED: Lidocaine Viscous Oral Soln 15 ML SOLUTION MM ONE (14:27)
[2022-03-05 15:58] LABS: INR 1.4; Prothrombin Time 15.2 Seconds (9.4-12.1)
[2022-03-05] MEDS: Ipratropium/Albuterol Neb 3 ML IH SCH ×2 (16:07→22:12)
[2022-03-05] MEDS: Acetylcysteine 10% 2 ML INHSOL IH SCH ×2 (16:08→22:12)
[2022-03-05] MEDS ORDERED: *HR* Warfarin 2.5 MG TABLET PO ONE (18:00)
[2022-03-05] MEDS ORDERED: Warfarin perPT PO PRN (18:00)
[2022-03-05] MEDS: *HR* OxyCODONE/APAP 5/325 TABLET PO PRN (21:02)
[2022-03-06] MEDS: Acetylcysteine 10% 2 ML INHSOL IH SCH ×4 (03:55→23:06)
[2022-03-06] MEDS: Ipratropium/Albuterol Neb 3 ML IH SCH ×4 (03:55→23:08)
[2022-03-06] MEDS: Insulin LISPRO 300 UNITS/3 ML VIAL SUBQ SCH ×5 (04:48→20:06)
[2022-03-06] MEDS: Vancomycin 1,500 MG/265 ML IV.SOLN IVPB SCH ×2 (04:51→16:40)
[2022-03-06 05:06] LABS: Hemoglobin 13.1 g/dL (12.9-16.9); Mean Corpuscular HGB Conc 31.2 g/dL (31.6-35.5); Mean Corpuscular Hemoglobin 27.7 pg (28.0-33.3); Mean Corpuscular Volume 88.8 fL (83.0-100.0); Mean Platelet Volume 10.1 fL (9.4-12.4); Platelet Count 245 K/mcL (140-400); Red Blood Count 4.73 M/mcL (4.19-5.50); Red Cell Distribution Width 15.4 % (11.5-14.5)
[2022-03-06 05:21] LABS: BUN/Creatinine Ratio 33 (6-26); Blood Urea Nitrogen 32 mg/dL (6-20); Calcium 10.9 mg/dL (8.6-10.3); Carbon Dioxide 30 mEq/L (23-29); Chloride 99 mEq/L (98-107); Glucose 238 mg/dL (70-105); Magnesium 1.6 mg/dL (1.6-2.6); Osmolality,Calculated 293 (280-300); Potassium 4.2 mEq/L (3.5-5.1); Sodium 134 mEq/L (136-145); eGFR For African Americans > 60 (> 60); eGFR For Non-African Americans > 60 (> 60)
[2022-03-06] MEDS: Bumetanide 1 MG/4 ML VIAL IVP SCH ×2 (06:09→16:44)
[2022-03-06] MEDS: Magnesium Oxide 400 MG TABLET PO SCH ×2 (08:13→20:06)
[2022-03-06] MEDS: BuPROPion SR (12 HR) 150 MG TABLET PO SCH ×2 (08:14→20:05)
[2022-03-06] MEDS: Cholecalciferol (D-3) 1,000 UNIT (25MCG) TABLET PO SCH (08:14)
[2022-03-06] MEDS: *HR* OxyCODONE/APAP 5/325 TABLET PO PRN (08:14)
[2022-03-06] MEDS: Aspirin Enteric Coated 81 MG Tablet PO SCH (08:14)
[2022-03-06] MEDS: *HR* Amiodarone 200 MG TABLET PO SCH ×2 (08:14→20:06)
[2022-03-06] MEDS: Insulin DETEMIR 100 UNIT/ML X5UNITS SUBQ SCH ×2 (08:15→20:06)
[2022-03-06] MEDS: cefTRIAXone 2,000 MG in 0.9 % Sodium Chloride 20 ML IVPB SCH (08:15)
[2022-03-06] MEDS: Chlorhexidine Rinse 15 ML MOUTHWASH MM SCH (08:15)
[2022-03-06 17:17] LABS: INR 1.3; Prothrombin Time 14.6 Seconds (9.4-12.1)
[2022-03-06] MEDS ORDERED: Insulin DETEMIR 100 UNIT/ML X5UNITS SUBQ ONE (22:21)
[2022-03-06] MEDS: Ipratropium/Albuterol Neb 3 ML IH PRN (23:06)
[2022-03-07] MEDS: *HR* OxyCODONE/APAP 5/325 TABLET PO PRN (00:34)
[2022-03-07] MEDS: Acetylcysteine 10% 2 ML INHSOL IH SCH ×4 (03:27→23:01)
[2022-03-07] MEDS: Ipratropium/Albuterol Neb 3 ML IH PRN ×4 (03:27→23:01)
[2022-03-07] MEDS: Vancomycin 1,500 MG/265 ML IV.SOLN IVPB SCH ×2 (03:46→15:51)
[2022-03-07 04:27] LABS: Hematocrit 40.4 % (37.5-50.1); Hemoglobin 12.8 g/dL (12.9-16.9); Mean Corpuscular HGB Conc 31.7 g/dL (31.6-35.5); Mean Corpuscular Hemoglobin 27.9 pg (28.0-33.3); Mean Corpuscular Volume 88.2 fL (83.0-100.0); Platelet Count 251 K/mcL (140-400); Red Blood Count 4.58 M/mcL (4.19-5.50); Red Cell Distribution Width 15.4 % (11.5-14.5)
[2022-03-07 04:38] LABS: INR 1.3; Prothrombin Time 14.5 Seconds (9.4-12.1)
[2022-03-07 04:42] LABS: BUN/Creatinine Ratio 33 (6-26); Blood Urea Nitrogen 29 mg/dL (6-20); Calcium 10.9 mg/dL (8.6-10.3); Carbon Dioxide 30 mEq/L (23-29); Chloride 95 mEq/L (98-107); Glucose 325 mg/dL (70-105); Magnesium 1.7 mg/dL (1.6-2.6); Osmolality,Calculated 288 (280-300); Potassium 4.8 mEq/L (3.5-5.1); Sodium 130 mEq/L (136-145); eGFR For African Americans > 60 (> 60); eGFR For Non-African Americans > 60 (> 60)
[2022-03-07] MEDS: Bumetanide 1 MG/4 ML VIAL IVP SCH ×2 (05:46→18:09)
[2022-03-07] MEDS: cefTRIAXone 2,000 MG in 0.9 % Sodium Chloride 20 ML IVPB SCH (08:40)
[2022-03-07] MEDS: *HR* Amiodarone 200 MG TABLET PO SCH ×2 (08:42→19:48)
[2022-03-07] MEDS: Aspirin Enteric Coated 81 MG Tablet PO SCH (08:42)
[2022-03-07] MEDS: Magnesium Oxide 400 MG TABLET PO SCH ×2 (08:42→19:48)
[2022-03-07] MEDS: BuPROPion SR (12 HR) 150 MG TABLET PO SCH ×2 (08:42→19:48)
[2022-03-07] MEDS: Cholecalciferol (D-3) 1,000 UNIT (25MCG) TABLET PO SCH (08:42)
[2022-03-07] MEDS: Insulin LISPRO 300 UNITS/3 ML VIAL SUBQ SCH ×4 (08:44→19:49)
[2022-03-07] MEDS: Insulin DETEMIR 100 UNIT/ML X5UNITS SUBQ SCH ×2 (08:44→19:49)
[2022-03-07] MEDS ORDERED: Insulin DETEMIR 100 UNIT/ML X5UNITS SUBQ ONE (14:58)
[2022-03-07] MEDS ORDERED: *HR* Warfarin 4 MG TABLET PO ONE (18:00)
[2022-03-08] MEDS: Vancomycin 1,500 MG/265 ML IV.SOLN IVPB SCH ×2 (03:41→15:14)
[2022-03-08] MEDS: Ipratropium/Albuterol Neb 3 ML IH PRN (04:10)
[2022-03-08] MEDS: Acetylcysteine 10% 2 ML INHSOL IH SCH (04:10)
[2022-03-08 04:30] LABS: Hematocrit 40.3 % (37.5-50.1); Hemoglobin 12.8 g/dL (12.9-16.9); Mean Corpuscular HGB Conc 31.8 g/dL (31.6-35.5); Mean Corpuscular Hemoglobin 27.9 pg (28.0-33.3); Platelet Count 281 K/mcL (140-400); Red Blood Count 4.58 M/mcL (4.19-5.50); Red Cell Distribution Width 15.4 % (11.5-14.5); White Blood Count 13.6 K/mcL (4.3-11.1)
[2022-03-08 04:37] LABS: INR 1.3; Prothrombin Time 14.3 Seconds (9.4-12.1)
[2022-03-08 04:49] LABS: BUN/Creatinine Ratio 32 (6-26); Blood Urea Nitrogen 28 mg/dL (6-20); Carbon Dioxide 30 mEq/L (23-29); Chloride 96 mEq/L (98-107); Glucose 276 mg/dL (70-105); Magnesium 1.5 mg/dL (1.6-2.6); Osmolality,Calculated 285 (280-300); Potassium 4.5 mEq/L (3.5-5.1); Sodium 130 mEq/L (136-145); eGFR For African Americans > 60 (> 60); eGFR For Non-African Americans > 60 (> 60)
[2022-03-08] MEDS: Bumetanide 1 MG/4 ML VIAL IVP SCH ×2 (05:20→17:03)
[2022-03-08] MEDS: cefTRIAXone 2,000 MG in 0.9 % Sodium Chloride 20 ML IVPB SCH (09:00)
[2022-03-08] MEDS: *HR* Amiodarone 200 MG TABLET PO SCH ×2 (09:01→20:28)
[2022-03-08] MEDS: Magnesium Oxide 400 MG TABLET PO SCH ×2 (09:01→20:29)
[2022-03-08] MEDS: BuPROPion SR (12 HR) 150 MG TABLET PO SCH ×2 (09:01→20:29)
[2022-03-08] MEDS: Cholecalciferol (D-3) 1,000 UNIT (25MCG) TABLET PO SCH (09:01)
[2022-03-08] MEDS: Insulin LISPRO 300 UNITS/3 ML VIAL SUBQ SCH ×4 (09:02→20:29)
[2022-03-08] MEDS: Insulin DETEMIR 100 UNIT/ML X5UNITS SUBQ SCH ×2 (10:36→20:29)
[2022-03-08] MEDS: Aspirin Enteric Coated 81 MG Tablet PO SCH (10:36)
[2022-03-08] MEDS ORDERED: *HR* Warfarin 4 MG TABLET PO ONE (18:00)
[2022-03-08] MEDS: *HR* OxyCODONE/APAP 5/325 TABLET PO PRN (18:43)
[2022-03-08] MEDS: Melatonin 3 MG TABLET PO PRN (20:29)
[2022-03-09 03:57] LABS: Hematocrit 40.4 % (37.5-50.1); Hemoglobin 12.8 g/dL (12.9-16.9); Mean Corpuscular HGB Conc 31.7 g/dL (31.6-35.5); Mean Corpuscular Hemoglobin 28.1 pg (28.0-33.3); Mean Corpuscular Volume 88.6 fL (83.0-100.0); Mean Platelet Volume 9.8 fL (9.4-12.4); Platelet Count 292 K/mcL (140-400); Red Blood Count 4.56 M/mcL (4.19-5.50); Red Cell Distribution Width 15.5 % (11.5-14.5); White Blood Count 13.5 K/mcL (4.3-11.1)
[2022-03-09 04:04] LABS: INR 1.4; Prothrombin Time 15.6 Seconds (9.4-12.1)
[2022-03-09 04:17] LABS: BUN/Creatinine Ratio 29 (6-26); Blood Urea Nitrogen 27 mg/dL (6-20); Calcium 10.8 mg/dL (8.6-10.3); Carbon Dioxide 30 mEq/L (23-29); Chloride 99 mEq/L (98-107); Glucose 198 mg/dL (70-105); Magnesium 1.7 mg/dL (1.6-2.6); Osmolality,Calculated 289 (280-300); Potassium 4.2 mEq/L (3.5-5.1); Sodium 134 mEq/L (136-145); Vancomycin,Trough 16 mcg/mL (5-10); eGFR For African Americans > 60 (> 60); eGFR For Non-African Americans > 60 (> 60)
[2022-03-09] MEDS: Bumetanide 1 MG/4 ML VIAL IVP SCH ×2 (04:56→16:26)
[2022-03-09] MEDS: Vancomycin 1,500 MG/265 ML IV.SOLN IVPB SCH ×2 (04:57→16:27)
[2022-03-09] MEDS: Aspirin Enteric Coated 81 MG Tablet PO SCH (08:13)
[2022-03-09] MEDS: BuPROPion SR (12 HR) 150 MG TABLET PO SCH (08:13)
[2022-03-09] MEDS: Cholecalciferol (D-3) 1,000 UNIT (25MCG) TABLET PO SCH (08:13)
[2022-03-09] MEDS: Magnesium Oxide 400 MG TABLET PO SCH (08:13)
[2022-03-09] MEDS: cefTRIAXone 2,000 MG in 0.9 % Sodium Chloride 20 ML IVPB SCH (08:14)
[2022-03-09] MEDS: Insulin DETEMIR 100 UNIT/ML X5UNITS SUBQ SCH (08:14)
[2022-03-09] MEDS: *HR* Amiodarone 200 MG TABLET PO SCH (08:15)
[2022-03-09] MEDS: Insulin LISPRO 300 UNITS/3 ML VIAL SUBQ SCH ×3 (08:16→16:39)
[2022-03-09 10:25] LABS: Influenza A PCR Negative (Negative); Influenza B PCR Negative (Negative); Resp. Syncytial Virus PCR Negative (Negative); SARS-CoV-2 by PCR (In House) Negative (Negative)
[2022-03-09 16:04] VITALS: BP 136/85; PULSE 84; TEMP 97.7; O2SAT 94
[2022-03-09] MEDS ORDERED: *HR* Warfarin 5 MG TABLET PO ONE (18:00)
== END 2022-03-09 19:20 | DRG 216 ==
LOC: EMEROOARM 04:51 → 2ANU 04:51 → SUATTDRO 02-21 16:23 → ICNU 02-25 15:43 → 2NNU 03-04 21:28
PROVIDERS: ADMIT Family Medicine; ATTEND Student in an Organized Health Care Education/Training Program